=== PATIENT | male | born 1960 | race Caucasian/White ===

== ENCOUNTER 2016-10-23 03:11 | Emergency (ER) | payer BC ==
[2016-10-23] MEDS ORDERED: HYDROmorphone 1 MG/ML Syringe IVPUSH ONE ×3 (03:27→04:42)
[2016-10-23] MEDS ORDERED: Sodium Chloride 0.9% 1,000 ML IV ONE (03:27)
[2016-10-23] MEDS ORDERED: Ondansetron 4 MG/2 ML SDV IV ONE (03:27)
[2016-10-23] MEDS ORDERED: Iopamidol 612 MG/ML 100 ML Bottle IVPUSH ONE ×2 (03:29→03:30)
--- NOTE | 2016-10-23 03:34 | EDM.PDOC ---
ED HPI GI/ABDOMINAL - General Chief Complaint: Abdominal Pain Stated Complaint: SEVERE ABD PAIN Time Seen by Provider: 10/23/16 03:31 Source of Information: Reports: Patient, Family History Limitations: Reports: No limitations - History of Present Illness INITIAL COMMENTS - FREE TEXT/NARRATIVE: onset low abd' pain since 9pm, had same last year due to diverticulitis. had scope and no problem since then till tonight. no bloody stools. some nausea. denies ab'd surgery but had kidney removed in 2008 for cancer. no problem since. - Related Data Allergies/ADRs: Allergies Allergy/AdvReac Type Severity Reaction Status Date / Time No Known Allergies Allergy Verified 10/23/16 03:15 Home Meds: Home Meds traMADol HCl [Tramadol HCl] 50 mg PO BID PRN 02/28/16 [History] Moxifloxacin HCl 400 mg PO DAILY #10 tablet 03/03/16 [Rx] Past Medical History HEENT History: Reports: None Cardiovascular History: Reports: None Respiratory History: Reports: None Gastrointestinal History: Reports: Other (see below) Other Gastrointestinal History: diverticulitis Genitourinary History: Reports: Other (see below) Other Genitourinary History: kidney cancer 2008 Musculoskeletal History: Reports: Arthritis Other Musculoskeletal History: arthritis right hand Neurological History: Reports: None Psychiatric History: Reports: None Endocrine/Metabolic History: Reports: None Hematologic History: Reports: None Immunologic History: Reports: None Oncologic (Cancer) History: Reports: Renal Dermatologic History: Reports: None - Infectious Disease History Infectious Disease History: Reports: Chicken pox - Past Surgical History Head Surgeries/Procedures: Reports: None GI Surgical History: Reports: None Male Surgical History: Reports: Nephrectomy Social & Family History - Family History Family Medical History: Noncontributory - Tobacco Use Smoking Status *Q: Never Smoker - Caffeine Use Caffeine Use: Reports: None - Alcohol Use Days Per Week of Alcohol Use: 3 Number of Drinks Per Day: 3 Total Drinks Per Week: 9 - Recreational Drug Use Recreational Drug Use: No - Living Situation & Occupation Living situation: Reports: , with family Occupation: employed ([employer]) ED ROS GENERAL - Review of Systems Review Of Systems: ROS reveals no pertinent complaints other than HPI. ED EXAM, GI/ABD - Physical Exam Exam: See Below Exam Limited By: No limitations General Appearance: alert, WD/WN, mild distress, other (pain) Ears: hearing grossly normal Throat/Mouth: Normal voice, No airway compromise Head: atraumatic Neck: non-tender, full range of motion Respiratory/Chest: no respiratory distress Cardiovascular: regular rate, rhythm GI/Abdominal: tenderness, guarding. No: rebound, rigidity Neurological: alert, oriented, normal cognition, normal gait, no motor/sensory deficits Psychiatric: tearful Skin Exam: Warm, Dry Lymphatic: no adenopathy Course - Vital Signs Last Recorded V/S: Last Vital Signs Temp 36.0 C 10/23/16 03:21 Pulse 82 10/23/16 04:11 Resp 18 10/23/16 04:11 BP 132/79 10/23/16 04:11 Pulse Ox 92 L 10/23/16 04:11 - Orders/Labs/Meds Labs: Laboratory Tests 10/23/16 10/23/16 Range/Units 03:19 03:19 WBC 11.9 H (5.0-10.0) 10^3/uL RBC 4.79 (4.6-6.2) 10^6/uL Hgb 14.8 (14.0-18.0) g/dL Hct 44.8 (40.0-54.0) % MCV 93.5 (80-100) fL MCH 30.9 (27.0-34.0) pg MCHC 33.0 (33.0-35.0) g/dL Plt Count 188 (150-450) 10^3/uL Neut % (Auto) 81.2 H (42.2-75.2) % Lymph % (Auto) 10.4 L (20.5-50.1) % [place] % (Auto) 6.6 (2-8) % Eos % (Auto) 1.5 (1.0-3.0) % Baso % (Auto) 0.3 (0.0-1.0) % Sodium 137 (135-145) mmol/L Potassium 4.5 (3.6-5.0) mmol/L Chloride 105 (101-111) mmol/L Carbon Dioxide 23.0 (21.0-31.0) mmol/L Anion Gap 13.5 BUN 21 H (7-18) mg/dL Creatinine 1.1 (0.6-1.3) mg/dL Est Cr Clr Drug Dosing 84.26 mL/min Estimated GFR (MDRD) > 60 BUN/Creatinine Ratio 19.09 Glucose 138 H (74-105) mg/dL Calcium 9.3 (8.4-10.2) mg/dl Total Bilirubin 0.8 (0.2-1.0) mg/dL AST 28 (10-42) IU/L ALT 25 (10-60) IU/L Alkaline Phosphatase 64 (42-121) IU/L Total Protein 7.6 (6.7-8.2) g/dl Albumin 4.3 (3.2-5.5) g/dl Globulin 3.3 Albumin/Globulin Ratio 1.30 Amylase 45 (28-100) U/L Lipase 38 (22-51) U/L Meds: Medications Discontinued Medications Generic Name Dose Route Start Last Admin Trade Name Freq PRN Reason Stop Dose Admin Hydromorphone HCl 1 mg 10/23/16 03:27 10/23/16 03:33 Dilaudid IVPUSH 10/23/16 03:28 1 mg ONETIME ONE Administration Hydromorphone HCl 1 mg 10/23/16 04:01 10/23/16 04:04 Dilaudid IVPUSH 10/23/16 04:02 1 mg ONETIME ONE Administration Hydromorphone HCl 1 mg 10/23/16 04:42 Dilaudid IVPUSH 10/23/16 04:43 ONETIME ONE Sodium Chloride 1,000 mls @ 999 mls/hr 10/23/16 03:27 10/23/16 03:33 Normal Saline IV 10/23/16 04:27 999 mls/hr .BOLUS ONE Administration Iopamidol 25 ml 10/23/16 03:29 Isovue-300 (61%) IVPUSH 10/23/16 03:30 ONETIME ONE Iopamidol 100 ml 10/23/16 03:30 Isovue-300 (61%) IVPUSH 10/23/16 03:31 ONETIME ONE Iopamidol 75 ml 10/23/16 03:39 10/23/16 04:03 Isovue-300 (61%) IVPUSH 10/23/16 03:40 75 ml ONETIME ONE Administration Iopamidol 50 ml 10/23/16 03:40 10/23/16 04:03 Isovue-300 (61%) IVPUSH 10/23/16 03:41 50 ml ONETIME ONE Administration Ondansetron HCl 4 mg 10/23/16 03:27 10/23/16 03:33 Zofran IV 10/23/16 03:28 4 mg ONETIME ONE Administration - Re-Assessments/Exams Free Text/Narrative Re-Assessment/Exam: 10/23/16 04:43 results discussed with Pt & spouse who felt it's better at home since he can sleep better. last admit Pt got Tx with ABX & MS which they can take at home since labs are reasonable and there's no perforation. Departure - Departure Time of Disposition: 04:50 Disposition: Home, Self-Care 01 Condition: good Clinical Impression: Diverticulitis large intestine w/o perforation or abscess w/o bleeding Instructions: Abdominal Pain, Adult, [id number] Forms: ED Department Discharge Additional Instructions: 1) return if there is any change or concern 2) avoid solid foods next 48 hoiurs rx given: moxifloxacin 400mg daily x 10 morphine 15mg q 4-6 hr prn x 12
[2016-10-23] MEDS ORDERED: Iopamidol 612 MG/ML 75 ML Bottle IVPUSH ONE (03:39)
[2016-10-23] MEDS ORDERED: Iopamidol 612 MG/ML 50 ML SDV IVPUSH ONE (03:40)
[2016-10-23 03:47] LABS: CHLORIDE,CL 105 mmol/L (101-111); SODIUM,NA 137 mmol/L (135-145)
[2016-10-23 04:11] VITALS: BP 132/79
== END 2016-10-23 04:59 | disposition home or self-care (01) ==
LOC: DL.ED 03:11
DX: K57.32 Diverticulitis of large intestine without perforation or abscess without bleeding (principal); M19.90 Unspecified osteoarthritis, unspecified site
CPT/HCPCS: 36415; 74177; 80053; 82150; 83690; 85025; 96361; 96374; 96375; 96376; 99284; J1170; J2405; J7030; Q9967

== ENCOUNTER 2017-01-06 05:46 | Day surgery (SDC) | payer BC ==
[2017-01-06] MEDS ORDERED: Sodium Chloride 0.9% 10 ML Syringe FLUSH PRN (06:00)
[2017-01-06] MEDS ORDERED: Dextrose 5%-0.45% NaCl 1,000 ML IV SCH (06:00)
[2017-01-06] MEDS ORDERED: fentaNYL 100 MCG/2 ML SDV ONE (06:14)
[2017-01-06] MEDS ORDERED: Midazolam 1 MG/ML 2 ML SDV ONE (06:18)
[2017-01-06] MEDS ORDERED: fentaNYL 100 MCG/2 ML SDV IV ONE ×4 (07:03→07:13)
[2017-01-06] MEDS ORDERED: Midazolam 1 MG/ML 2 ML SDV IV ONE ×7 (07:04→07:28)
--- NOTE | 2017-01-06 09:17 | OR ---
DATE: 01/06/2017 PROCEDURE: Total colonoscopy, NBI, and cold snare polypectomy. INSTRUMENT USED: CF-H180AL Olympus video colonoscope. PREMEDICATIONS: Fentanyl 150 mcg intravenous, Versed 5 mg intravenous. Nasal O2 cannula. The procedure was done under pulse oximetry, BP recording, and orthotist/prosthetist. INDICATION: The patient with positive family history of colon cancer and recurrent left-sided lower abdominal pain, treated as subacute colonic diverticulitis. Colonoscopic examination is done for detection of any polypoid lesions and removal, endoscopic hemostasis therapy if needed. DESCRIPTION OF PROCEDURE: Initial rectal exam was unremarkable. Rigid anoscopy was normal. The colonoscope was passed with ease. Numerous scattered diverticula were noted in the left colon along with some prominent erythematous folds around one of the diverticula. The colon was found to be a bit tortuous and redundant. The scope was passed up to the ileocecal area, photographs were taken of the cecum identified by prominent double-bulged ileocecal folds. No bleeding was noted from any of the visualized areas at the commencement of the examination. No stricture. No vascular ectasia. No large isolated ulcerations seen. No evidence of diffuse inflammatory bowel disease in the form of friability, contact bleeding, or ulcerations. In the proximal ascending colon, less than 1 cm sized benign-appearing polyp was noted, NBI views were obtained, photographs were taken, cold snare polypectomy was done, the tissue was retrieved and sent for histopathology. Probing the proximal sides of folds and flexures, using adequate distention and clearing up the stool material, withdrawal of the scope was made. Cecum to rectum time over 6 minutes. No bleeding was noted from any of the visualized areas at the completion of examination. IMPRESSION: 1. Diverticulosis. 2. Proximal ascending colon polyp. The patient tolerated the procedure well. [facility] /[id number]
[2017-01-06 10:25] VITALS: BP 95/76
== END 2017-01-06 09:49 | disposition home or self-care (01) ==
LOC: DL.ENDO 05:46
PROVIDERS: ATTEND Internal Medicine Gastroenterology
DX: D12.2 Benign neoplasm of ascending colon (principal); K57.30 Diverticulosis of large intestine without perforation or abscess without bleeding; E66.9 Obesity, unspecified; Z90.5 Acquired absence of kidney
CPT/HCPCS: 45385; J7042; J2250; J3010

== ENCOUNTER 2019-12-10 21:24 | Emergency (ER) | payer BC ==
--- NOTE | 2019-12-10 21:53 | EDM.PDOC ---
ED HPI GENERAL MEDICAL PROBLEM - General Chief Complaint: Back Pain or Injury Stated Complaint: BACK PAIN Time Seen by Provider: 12/10/19 21:53 Source of Information: Reports: Patient, RN, RN Notes Reviewed History Limitations: Reports: No Limitations - History of Present Illness INITIAL COMMENTS - FREE TEXT/NARRATIVE: Patient presents to ER with complaint of mid to low back pain and muscle spasms. Patient states he has had back pain and problems in the past, has had an MRI many years ago. Patient states he has been in the tractor recently and bouncing up and down, aggravating the pain. Patient states pain started 4 to 5 days ago, improves at times, and then gets worse at times. Patient states he has been using Tylenol and ibuprofen and heat to the area without help. Patient denies any numbness or tingling down the lower extremities, no saddle anesthesia, and no incontinence of bowel or bladder. States no new injury, falls, heavy lifting. Rates pain 5/10. Onset: Gradual Duration: Intermittent Location: Reports: Back Quality: Reports: Sharp Severity: Moderate Improves with: Reports: None Worsens with: Reports: Movement Associated Symptoms: Reports: No Other Symptoms Treatments INTAKE MANAGER: Reports: Acetaminophen, Heat Therapy Right Middle Back Pain Score (Numeric/FACES): 5 - Related Data Allergies Allergy/AdvReac Type Severity Reaction Status Date / Time No Known Allergies Allergy Verified 12/10/19 21:36 Home Meds: Home Meds . [No Known Home Meds] 01/05/17 [History] Past Medical History HEENT History: Reports: None Cardiovascular History: Reports: None Respiratory History: Reports: None Gastrointestinal History: Reports: Diverticulosis, Other (See Below) Other Gastrointestinal History: HX OF RECURRENT diverticulitis Genitourinary History: Reports: Other (See Below) Other Genitourinary History: kidney cancer 2009 Musculoskeletal History: Reports: Arthritis Other Musculoskeletal History: arthritis right hand Neurological History: Reports: None Psychiatric History: Reports: None Endocrine/Metabolic History: Reports: Obesity/BMI 30+ Hematologic History: Reports: None Immunologic History: Reports: None Oncologic (Cancer) History: Reports: Renal Dermatologic History: Reports: None - Infectious Disease History Infectious Disease History: Reports: Chicken Pox - Past Surgical History Head Surgeries/Procedures: Reports: None HEENT Surgical History: Reports: None Cardiovascular Surgical History: Reports: None GI Surgical History: Reports: Colonoscopy Male Surgical History: Reports: Nephrectomy Other Male Surgeries/Procedures: R NEPHRECTOMY D/T CA Social & Family History - Family History Family Medical History: Noncontributory - Caffeine Use Caffeine Use: Reports: Soda - Living Situation & Occupation Living situation: Reports: , with Family Occupation: Employed ED ROS GENERAL - Review of Systems Review Of Systems: Comprehensive ROS is negative, except as noted in HPI. ED EXAM,LOWER BACK PAIN/INJURY - Physical Exam Exam: See Below Exam Limited By: No Limitations General Appearance: Alert, WD/WN, Moderate Distress Eye Exam: Bilateral Eye: EOMI, Normal Inspection Ears: Normal External Exam, Hearing Grossly Normal Nose: Normal Inspection Throat/Mouth: Normal Inspection, Normal Voice, No Airway Compromise Head: Atraumatic, Normocephalic Neck: Normal Inspection, Supple, Non-Tender, Full Range of Motion Respiratory/Chest: No Respiratory Distress, Lungs Clear, Normal Breath Sounds, No Accessory Muscle Use, Chest Non-Tender Cardiovascular: Normal Peripheral Pulses, Regular Rate, Rhythm, No Edema, No Gallop, No JVD, No Murmur, No Rub GI/Abdominal: Normal Bowel Sounds, Soft, Non-Tender, No Organomegaly, No Distention, No Abnormal Bruit, No Mass (Male) Exam: Deferred Rectal (Males) Exam: Deferred Back Exam: Normal Inspection, Decreased Range of Motion, Muscle Spasm, Paraspinal Tenderness (Approximately L1-L2), Vertebral Tenderness Extremities: Normal Inspection, Normal Range of Motion, Non-Tender, No Pedal Edema, Normal Capillary Refill Neurological: Alert, Normal Mood/Affect, Normal Dorsiflexion, CN II-XII Intact, Normal Plantar Flexion, Normal Gait, Normal Reflexes, No Motor/Sensory Deficits , Oriented x 3 Psychiatric: Normal Affect, Normal Mood Skin Exam: Warm, Dry, Intact, Normal Color, No Rash Lymphatic: No Adenopathy Course - Vital Signs Last Recorded V/S: Last Vital Signs Temp 99.0 F 12/10/19 22:00 Pulse 84 12/10/19 22:00 Resp 16 12/10/19 22:00 BP 129/81 12/10/19 22:00 Pulse Ox 98 12/10/19 22:00 - Orders/Labs/Meds Meds: Medications Discontinued Medications Generic Name Dose Route Start Last Admin Trade Name Freq PRN Reason Stop Dose Admin Dexamethasone 12 mg 12/10/19 21:57 12/10/19 22:12 Dexamethasone IM 12/10/19 21:58 12 mg ONETIME ONE Administration Ketorolac Tromethamine 30 mg 12/10/19 21:57 12/10/19 22:13 Toradol IM 12/10/19 21:58 30 mg ONETIME ONE Administration Orphenadrine Citrate 60 mg 12/10/19 21:57 12/10/19 22:14 Norflex IM 12/10/19 21:58 60 mg ONETIME ONE Administration Departure - Departure Time of Disposition: 22:31 Disposition: Home, Self-Care 01 Condition: Fair Clinical Impression: Low back pain Qualifiers: Chronicity: acute Back pain laterality: midline Sciatica presence: without sciatica Qualified Code(s): M54.5 - Low back pain - Discharge Information *PRESCRIPTION DRUG MONITORING PROGRAM REVIEWED*: No *COPY OF PRESCRIPTION DRUG MONITORING REPORT IN PATIENT HUBER: No Instructions: Back Injury Prevention, [id number], Muscle Strain, [id number] , Back Exercises, [id number] Forms: ED Department Discharge Additional Instructions: May alternate heat and ice to the area as tolerated I suggest a TENS unit as directed May use Tylenol and/or Ibuprofen as directed for pain RX: Norflex, Dexamethasone Follow up with your primary care provider for further management and MRI Sepsis Event Note - Focused Exam Vital Signs: Vital Signs Temp Pulse Resp BP Pulse Ox 12/10/19 22:00 99.0 F 84 16 129/81 98 Date Exam was Performed: 12/10/19 Time Exam was Performed: 23:13
[2019-12-10] MEDS ORDERED: Ketorolac 30 MG/ML SDV IM ONE (21:57)
[2019-12-10] MEDS ORDERED: Dexamethasone 4 MG/ML SDV IM ONE (21:57)
[2019-12-10 22:05] VITALS: BP 129/81; PULSE 84
== END 2019-12-10 22:25 | disposition home or self-care (01) ==
LOC: DL.ED 21:24
DX: M54.5 Low back pain (principal); E66.9 Obesity, unspecified; Z68.37 Body mass index [BMI] 37.0-37.9, adult
CPT/HCPCS: 96372; 99283; J1100; J1885; J2360

== ENCOUNTER 2020-05-10 15:35 | Emergency (ER) | payer BC ==
--- NOTE | 2020-05-10 15:57 | EDM.PDOC ---
"ED HPI GENERAL MEDICAL PROBLEM - General Chief Complaint: General Stated Complaint: chest congestion fever headache body aches Time Seen by Provider: 05/10/20 15:57 Source of Information: Reports: Patient, Old Records, RN, RN Notes Reviewed History Limitations: Reports: No Limitations - History of Present Illness INITIAL COMMENTS - FREE TEXT/NARRATIVE: Pt presents to ER from home with c/o that he has been sick since with cough, fever, and congestion. He went to clinic on and tested negative for COVID by the state test. He was given given nasal spray and Jessica. He c/o having abdominal pain but states it is from coughing. He states he is coughing up dark green phlegm, and no x-ray was done at the clinic. Admits to running fever on and off, and mild shortness of breath. He has been taking Tylenol, but doesn't think it is helping. He states his daughter had COVID 10 days ago. Onset: Gradual Onset Date: 05/07/20 Duration: Constant Location: Reports: Chest, Generalized Severity: Moderate Improves with: Reports: None Worsens with: Reports: Breathing Associated Symptoms: Reports: No Other Symptoms Treatments HEAD CASHIER: Reports: Acetaminophen, Other Medication(s) Abdomen Pain Score (Numeric/FACES): 7 - Related Data Allergies Allergy/AdvReac Type Severity Reaction Status Date / Time No Known Allergies Allergy Verified 05/10/20 16:05 Home Meds: Home Meds . [No Known Home Meds] 01/05/17 [History] Past Medical History HEENT History: Reports: None Cardiovascular History: Reports: None Respiratory History: Reports: None Gastrointestinal History: Reports: Diverticulosis, Other (See Below) Other Gastrointestinal History: HX OF RECURRENT diverticulitis Genitourinary History: Reports: Other (See Below) Other Genitourinary History: kidney cancer 2008 Musculoskeletal History: Reports: Arthritis Other Musculoskeletal History: arthritis right hand Neurological History: Reports: None Psychiatric History: Reports: None Endocrine/Metabolic History: Reports: Obesity/BMI 30+ Hematologic History: Reports: None Immunologic History: Reports: None Oncologic (Cancer) History: Reports: Renal Dermatologic History: Reports: None - Infectious Disease History Infectious Disease History: Reports: Chicken Pox - Past Surgical History Head Surgeries/Procedures: Reports: None HEENT Surgical History: Reports: None Cardiovascular Surgical History: Reports: None GI Surgical History: Reports: Colonoscopy Male Surgical History: Reports: Nephrectomy Other Male Surgeries/Procedures: R NEPHRECTOMY D/T CA Social & Family History - Family History Family Medical History: Noncontributory - Caffeine Use Caffeine Use: Reports: Soda - Living Situation & Occupation Living situation: Reports: , with Family Occupation: Employed ED ROS GENERAL - Review of Systems Review Of Systems: Comprehensive ROS is negative, except as noted in HPI. ED EXAM, GENERAL - Physical Exam Exam: See Below Exam Limited By: No Limitations General Appearance: Alert, No Apparent Distress, Anxious, Obese, Other (Acutely ill but non-toxic appearing.) Eye Exam: Bilateral Eye: Normal Inspection Ears: Normal External Exam, Normal Canal, Hearing Grossly Normal, Normal TMs Nose: No Blood, Nasal Drainage, Other (Moderate congestion) Throat/Mouth: Normal Lips, Normal Teeth, Normal Gums, Normal Oropharynx, Normal Voice, No Airway Compromise, Other (Dry oral mucosa) Head: Atraumatic, Normocephalic Neck: Normal Inspection, Supple, Non-Tender, Full Range of Motion. No: Lymphadenopathy (L), Lymphadenopathy (R) Respiratory/Chest: No Respiratory Distress, No Accessory Muscle Use, Decreased Breath Sounds, Crackles (with coarse breath sounds throughout), Other (Cough with occ. green sputum production). No: Rales, Rhonchi, Wheezing, Stridor Cardiovascular: Regular Rate, Rhythm, No Edema, Tachycardia GI/Abdominal: Normal Bowel Sounds, Soft, Non-Tender, No Organomegaly, No Distention, No Abnormal Bruit, No Mass Back Exam: Normal Inspection Extremities: Normal Inspection, Normal Range of Motion, Non-Tender, Normal Capillary Refill, No Pedal Edema Neurological: Alert, Oriented, CN II-XII Intact, Normal Cognition, Normal Gait, No Motor/Sensory Deficits Skin Exam: Warm, Dry, Intact, Normal Color, No Rash #1 Interpretation EKG Date: 05/10/20 Time: 17:12 Rhythm: Other (SR) Rate (Beats/Min): 99 Harrington: LAD-Left Harrington Deviation P-Wave: Present QRS: Normal ST-T: Other (borderline T abnls. in lateral leads without acute ischemic changes.) QT: Normal Comparison: NA - No Prior EKG Course - Vital Signs Last Recorded V/S: Last Vital Signs Temp 98.6 F 05/10/20 15:55 Pulse 122 H 05/10/20 15:55 Resp 18 05/10/20 15:55 BP 132/93 H 05/10/20 15:55 Pulse Ox 94 L 05/10/20 15:55 - Orders/Labs/Meds Orders: Active Orders 24 hr Category Date Time Status EKG 12 Lead [EKG Documentation Completion] [RC] STAT Care 05/10/20 17:06 Active Peripheral IV Care [RC] . DIRECTED Care 05/10/20 17:07 Active RT Aerosol Therapy [RC] ASDIRECTED Care 05/10/20 17:53 Active RT Post Treatment Assessment [RC] Click to Edit Care 05/10/20 18:48 Ordered RT Pre-Treatment Assessment [RC] Click to Edit Care 05/10/20 18:48 Ordered CULTURE BLOOD [BC] Stat Lab 05/10/20 17:12 Received CULTURE BLOOD [BC] Stat Lab 05/10/20 17:17 Received CULTURE STREP A CONFIRMATION [RM] Stat Lab 05/10/20 15:55 Results FERRITIN [CHEM] Stat Lab 05/10/20 17:12 Received STREP SCRN A RAPID W CULT CONF [RM] Stat Lab 05/10/20 15:55 Results Albuterol [Proventil HFA] Med 05/10/20 18:47 Once 6.7 gm INH ONETIME ONE Sodium Chloride 0.9% [Saline Flush] Med 05/10/20 17:06 Active 10 ml FLUSH ASDIRECTED PRN Blood Culture x2 Reflex Set [OM.PC] Stat Oth 05/10/20 17:06 Ordered Isolation [COMM] Routine Oth 05/10/20 15:58 Active Peripheral IV Insertion Adult [OM.PC] Stat Oth 05/10/20 17:07 Ordered Medication Orders Sodium Chloride (Saline Flush) 10 ml FLUSH ASDIRECTED PRN PRN Reason: Keep Vein Open Labs: Laboratory Tests 05/10/20 05/10/20 05/10/20 Range/Units 16:00 17:12 17:12 WBC 5.7 (5.0-10.0) 10^3/uL RBC 5.22 (4.6-6.2) 10^6/uL Hgb 16.0 (14.0-18.0) g/dL Hct 48.7 (40.0-54.0) % MCV 93.3 (80-100) fL MCH 30.7 (27.0-34.0) pg MCHC 32.9 L (33.0-35.0) g/dL Plt Count 139 L (150-450) 10^3/uL Neut % (Auto) 71.5 (42.2-75.2) % Lymph % (Auto) 6.7 L (20.5-50.1) % Wallace % (Auto) 20.5 H (2-8) % Eos % (Auto) 0.9 L (1.0-3.0) % Baso % (Auto) 0.4 (0.0-1.0) % Add Manual Diff Yes Neutrophils % (Manual) 62 (42-75) % Band Neutrophils % 9 % Lymphocytes % (Manual) 10 L (20-50) % Monocytes % (Manual) 18 H (2-8) % Eosinophils % (Manual) 1 (1-3) % Vacuolated Monocytes 1+ slight Platelet Estimate Decreased D-Dimer, Quantitative 1200 H (0-400) ng/mL Sodium (136-145) mmol/L Potassium (3.5-5.1) mmol/L Chloride (98-107) mmol/L Carbon Dioxide (21-32) mmol/L Anion Gap (7-13) mEq/L BUN (7-18) mg/dL Creatinine (0.70-1.30) mg/dL Est Cr Clr Drug Dosing Estimated GFR (MDRD) BUN/Creatinine Ratio (No establ ref range) Glucose (74-99) mg/dL Lactic Acid (0.4-2.0) mmol/L Calcium (8.5-10.1) mg/dL Total Bilirubin (0.2-1.0) mg/dL AST (15-37) U/L ALT (16-63) U/L Alkaline Phosphatase (46-116) U/L Troponin I (0.000-0.056) ng/mL C-Reactive Protein (0.0-0.9) mg/dL B-Natriuretic Peptide (0-100) pg/ml Total Protein (6.4-8.2) g/dL Albumin (3.4-5.0) g/dL Globulin Albumin/Globulin Ratio SARS CoV-2 RNA Rapid NATI Negative (NEGATIVE) 05/10/20 05/10/2020 Range/Units 17:12 17:12 17:12 WBC (5.0-10.0) 10^3/uL RBC (4.6-6.2) 10^6/uL Hgb (14.0-18.0) g/dL Hct (40.0-54.0) % MCV (80-100) fL MCH (27.0-34.0) pg MCHC (33.0-35.0) g/dL Plt Count (150-450) 10^3/uL Neut % (Auto) (42.2-75.2) % Lymph % (Auto) (20.5-50.1) % Wallace % (Auto) (2-8) % Eos % (Auto) (1.0-3.0) % Baso % (Auto) (0.0-1.0) % Add Manual Diff Neutrophils % (Manual) (42-75) % Band Neutrophils % % Lymphocytes % (Manual) (20-50) % Monocytes % (Manual) (2-8) % Eosinophils % (Manual) (1-3) % Vacuolated Monocytes Platelet Estimate D-Dimer, Quantitative (0-400) ng/mL Sodium 136 (136-145) mmol/L Potassium 3.7 (3.5-5.1) mmol/L Chloride 97 L (98-107) mmol/L Carbon Dioxide 26 (21-32) mmol/L Anion Gap 16.7 H (7-13) mEq/L BUN 20 H (7-18) mg/dL Creatinine 1.54 H (0.70-1.30) mg/dL Est Cr Clr Drug Dosing TNP Estimated GFR (MDRD) 47 BUN/Creatinine Ratio 13.0 (No establ ref range) Glucose 97 (74-99) mg/dL Lactic Acid 1.2 (0.4-2.0) mmol/L Calcium 9.3 (8.5-10.1) mg/dL Total Bilirubin 1.4 H (0.2-1.0) mg/dL AST 46 H (15-37) U/L ALT 59 (16-63) U/L Alkaline Phosphatase 74 (46-116) U/L Troponin I < 0.017 (0.000-0.056) ng/mL C-Reactive Protein 10.5 H (0.0-0.9) mg/dL B-Natriuretic Peptide 11 (0-100) pg/ml Total Protein 8.0 (6.4-8.2) g/dL Albumin 3.7 (3.4-5.0) g/dL Globulin 4.3 Albumin/Globulin Ratio 0.9 SARS CoV-2 RNA Rapid NATI (NEGATIVE) Negative Influenza A/B Negative Rapid Strep Meds: Medications Generic Name Dose Route Start Last Admin Trade Name Freq PRN Reason Stop Dose Admin Sodium Chloride 10 ml 05/10/20 17:06 Saline Flush FLUSH ASDIRECTED PRN Keep Vein Open Discontinued Medications Generic Name Dose Route Start Last Admin Trade Name Freq PRN Reason Stop Dose Admin Albuterol/Ipratropium 3 ml 05/10/20 17:53 05/10/20 18:32 Duoneb 3.0-0.5 Mg/3 Ml NEB 05/10/20 17:54 3 ml ONETIME ONE Administration Dexamethasone 8 mg 05/10/20 17:47 05/10/20 18:02 Dexamethasone IVPUSH 05/10/20 17:48 8 mg ONETIME ONE Administration Sodium Chloride 1,000 mls @ 999 mls/hr 05/10/20 17:06 05/10/20 17:18 Normal Saline IV 05/10/20 18:06 999 mls/hr .BOLUS ONE Administration Ceftriaxone Sodium 2 gm/ 100 mls @ 200 mls/hr 05/10/20 17:46 Sodium Chloride IV 05/10/20 18:15 ONETIME ONE Azithromycin 500 mg/ Sodium 250 mls @ 250 mls/hr 05/10/20 17:47 Chloride IV 05/10/20 18:46 ONETIME ONE Iopamidol 100 ml 05/10/20 17:56 05/10/20 18:02 Isovue-370 (76%) IVPUSH 05/10/20 17:57 100 ml ONETIME ONE Administration Ondansetron HCl 4 mg 05/10/20 17:05 05/10/20 17:17 Zofran IV 05/10/20 17:06 4 mg ONETIME ONE Administration Promethazine HCl/Codeine 10 ml 05/10/20 17:05 05/10/20 17:18 Phenergan With Codeine PO 05/10/20 17:06 10 ml ONETIME ONE Administration - Radiology Interpretation Free Text/Narrative:: [facility] Final Radiology Report Call: [phone] assistance Online chat: [email or web address] Name: ALENA SHARIF Age: 60Years M Date: 05/10/2020 SSN: -- : 1960 Study: CR CHEST 2V Requesting Physician: RADHA GUZMAN Images: 2 Addl Studies: Provided Clinical History: productive cough, fever Contrast: Contrast Medium: Contrast Amount: Contrast Method: CONFIDENTIALITY STATEMENT This report is intended only for use by the referring physician, and only in accordance with law. If you received this in error, call [phone]. Page 1 of 1 PROCEDURE INFORMATION: Exam: XR Chest, 2 Views Exam date and time: 05/10/2020 5:28 PM Age: 60 years old Clinical indication: Other: Covid negative; Additional info: Productive cough, fever TECHNIQUE: Imaging protocol: XR of the chest Views: 2 views. COMPARISON: No relevant prior studies available. FINDINGS: Lungs: Unremarkable. No consolidation. Pleural space: Unremarkable. No pleural effusion. No pneumothorax. Heart/Mediastinum: Unremarkable. No cardiomegaly. Bones/joints: Unremarkable. IMPRESSION: No acute findings. Thank you for allowing us to participate in the care of your patient. Dictated and Authenticated by: Franck Pablo MD 05/10/2020 5:33 PM Central Time ([place] & [place]) [facility] Final Radiology Report Call: [phone] assistance Online chat: [email or web address] Name: ALENA SHARIF Age: 60Years M Date: 05/10/2020 SSN: -- : 1960 Study: CT CHEST W CONT Requesting Physician: RADHA GUZMAN Images: [id number] Addl Studies: Provided Clinical History: cough, fever, short of breath, tachy, D-dimer 1200 Contrast: With Contrast Medium: [id number] Contrast Amount: 83 mL Contrast Method: Intravenous (IV) Page 1 of 2 PROCEDURE INFORMATION: Exam: CT Chest With Contrast Exam date and time: 05/10/2020 6:23 PM Age: 60 years old Clinical indication: Other: Pe vs false positive covid; Additional info: Cough, fever, short of breath, tachy, d-dimer 1200 TECHNIQUE: Imaging protocol: Computed tomography of the chest with intravenous contrast. Radiation optimization: All CT scans at this facility use at least one of these dose optimization techniques: automated exposure control; mA and/or kV adjustment per patient size (includes targeted exams where dose is matched to clinical indication); or iterative reconstruction. Contrast material: [id number]; Contrast volume: 83 ml; Contrast route: INTRAVENOUS (IV); COMPARISON: CR Chest 2V 05/10/2020 5:28 PM FINDINGS: Lungs: Unremarkable. No consolidation. No masses. Pleural space: Unremarkable. No pneumothorax. No pleural effusion. Heart: Unremarkable. No cardiomegaly. No pericardial effusion. Aorta: Unremarkable. No aortic aneurysm. Lymph nodes: Unremarkable. No enlarged lymph nodes. Bones/joints: Unremarkable. No acute fracture. Soft tissues: Unremarkable. IMPRESSION: Normal CT angiogram of the chest. No evidence for pulmonary embolism or acute cardiopulmonary disease. ALENA SHARIF | Final Radiology Report CONFIDENTIALITY STATEMENT This report is intended only for use by the referring physician, and only in accordance with law. If you received this in error, call [phone]. Page 2 of 2 Thank you for allowing us to participate in the care of your patient. Dictated and Authenticated by: Franck Pablo MD 05/10/2020 6:38 PM Central Time ([place] & [place]) - Re-Assessments/Exams Free Text/Narrative Re-Assessment/Exam: 05/10/20 18:43 Pt has symptoms consistent with COVID but had a negative COVID state test a few days ago, and negative rapid test in ER today. Lab results do have some features of COVID with normal WBC, low lymphocytes, elev. CRP and D-dimer, and pt was COVID exposed by his daughter. He will be treated symptomatically with Abx, albuterol inhaler, and Decadron with instructions to return to ER or call 911 if worse at any time and to arrange close clinic f/u for himself early next week. Departure - Departure Time of Disposition: 20:00 Disposition: Home, Self-Care 01 Condition: Fair Clinical Impression: Viral upper respiratory tract infection with cough - Discharge Information *PRESCRIPTION DRUG MONITORING PROGRAM REVIEWED*: Not Applicable *COPY OF PRESCRIPTION DRUG MONITORING REPORT IN PATIENT HUBER: Not Applicable Instructions: Viral Respiratory Infection Forms: ED Department Discharge Additional Instructions: Rx: Zithromax 500mg Rx: Dexamethasone 4mg Rx: Promethazine Codeine Syrup Albuterol Inhaler: 2 puffs every four hours while awake until cough and shortness of breath resolve. Drink plenty of water. Follow up in clinic next week for recheck if not improving as expected. Return to ER or call 911 if you develop any difficulty breathing. Sepsis Event Note (ED) - Focused Exam Vital Signs: Vital Signs Temp Pulse Resp BP Pulse Ox 05/10/20 15:55 98.6 F 122 H 18 132/93 H 94 L - My Orders Last 24 Hours: My Active Orders 05/10/20 15:55 CULTURE STREP A CONFIRMATION [RM] Stat STREP SCRN A RAPID W CULT CONF [RM] Stat 05/10/20 15:58 Isolation [COMM] Routine 05/10/20 17:06 EKG 12 Lead [EKG Documentation Completion] [RC] STAT Sodium Chloride 0.9% [Saline Flush] 10 ml FLUSH ASDIRECTED PRN Blood Culture x2 Reflex Set [OM.PC] Stat 05/10/20 17:07 Peripheral IV Care [RC] . DIRECTED Peripheral IV Insertion Adult [OM.PC] Stat 05/10/20 17:12 CULTURE BLOOD [BC] Stat FERRITIN [CHEM] Stat 05/10/20 17:17 CULTURE BLOOD [BC] Stat 05/10/20 17:53 RT Aerosol Therapy [RC] ASDIRECTED 05/10/20 18:47 Albuterol [Proventil HFA] 6.7 gm INH ONETIME ONE 05/10/20 18:48 RT Post Treatment Assessment [RC] Click to Edit RT Pre-Treatment Assessment [RC] Click to Edit - Assessment/Plan Last 24 Hours: My Active Orders 05/10/20 15:55 CULTURE STREP A CONFIRMATION [RM] Stat STREP SCRN A RAPID W CULT CONF [RM] Stat 05/10/20 15:58 Isolation [COMM] Routine 05/10/20 17:06 EKG 12 Lead [EKG Documentation Completion] [RC] STAT Sodium Chloride 0.9% [Saline Flush] 10 ml FLUSH ASDIRECTED PRN Blood Culture x2 Reflex Set [OM.PC] Stat 05/10/20 17:07 Peripheral IV Care [RC] . DIRECTED Peripheral IV Insertion Adult [OM.PC] Stat 05/10/20 17:12 CULTURE BLOOD [BC] Stat FERRITIN [CHEM] Stat 05/10/20 17:17 CULTURE BLOOD [BC] Stat 05/10/20 17:53 RT Aerosol Therapy [RC] ASDIRECTED 05/10/20 18:47 Albuterol [Proventil HFA] 6.7 gm INH ONETIME ONE 05/10/20 18:48 RT Post Treatment Assessment [RC] Click to Edit RT Pre-Treatment Assessment [RC] Click to Edit"
[2020-05-10] MEDS ORDERED: Ondansetron 4 MG/2 ML SDV IV ONE (17:05)
[2020-05-10] MEDS ORDERED: Codeine/Promethazine 10-6.25 MG/5 ML Syrup 5 ML UD Cup PO ONE (17:05)
[2020-05-10] MEDS ORDERED: Sodium Chloride 0.9% 10 ML Syringe FLUSH PRN (17:06)
[2020-05-10] MEDS ORDERED: Sodium Chloride 0.9% 1,000 ML IV ONE (17:06)
--- NOTE | 2020-05-10 17:34 | CR ---
PROCEDURE INFORMATION: Exam: XR Chest, 2 Views Exam date and time: 05/10/2020 5:28 PM Age: 60 years old Clinical indication: Other: Covid negative; Additional info: Productive cough, fever TECHNIQUE: Imaging protocol: XR of the chest Views: 2 views. COMPARISON: No relevant prior studies available. FINDINGS: Lungs: Unremarkable. No consolidation. Pleural space: Unremarkable. No pleural effusion. No pneumothorax. Heart/Mediastinum: Unremarkable. No cardiomegaly. Bones/joints: Unremarkable. IMPRESSION: No acute findings.
[2020-05-10] MEDS ORDERED: cefTRIAXone 2 GM in Sodium Chloride 0.9% 100 ML IV ONE (17:46)
[2020-05-10] MEDS ORDERED: Dexamethasone 4 MG/ML SDV IVPUSH ONE (17:47)
[2020-05-10] MEDS ORDERED: Azithromycin 500 MG in Sodium Chloride 0.9% 250 ML IV ONE (17:47)
[2020-05-10 17:49] LABS: ANION GAP 16.7 mEq/L (7-13); CHLORIDE,CL 97 mmol/L (98-107); SODIUM,NA 136 mmol/L (136-145)
[2020-05-10] MEDS ORDERED: Albuterol/Ipratropium 3.0-0.5 MG/3 ML Neb Soln NEB ONE (17:53)
[2020-05-10] MEDS ORDERED: Iopamidol 755 Mg/ML 100 ML Bottle IVPUSH ONE (17:56)
--- NOTE | 2020-05-10 18:38 | CT ---
PROCEDURE INFORMATION: Exam: CT Chest With Contrast Exam date and time: 05/10/2020 6:23 PM Age: 60 years old Clinical indication: Other: Pe vs false positive covid; Additional info: Cough, fever, short of breath, tachy, d-dimer 1200 TECHNIQUE: Imaging protocol: Computed tomography of the chest with intravenous contrast. Radiation optimization: All CT scans at this facility use at least one of these dose optimization techniques: automated exposure control; mA and/or kV adjustment per patient size (includes targeted exams where dose is matched to clinical indication); or iterative reconstruction. Contrast material: [id number]; Contrast volume: 83 ml; Contrast route: INTRAVENOUS (IV); COMPARISON: CR Chest 2V 05/10/2020 5:28 PM FINDINGS: Lungs: Unremarkable. No consolidation. No masses. Pleural space: Unremarkable. No pneumothorax. No pleural effusion. Heart: Unremarkable. No cardiomegaly. No pericardial effusion. Aorta: Unremarkable. No aortic aneurysm. Lymph nodes: Unremarkable. No enlarged lymph nodes. Bones/joints: Unremarkable. No acute fracture. Soft tissues: Unremarkable. IMPRESSION: Normal CT angiogram of the chest. No evidence for pulmonary embolism or acute cardiopulmonary disease.
[2020-05-10] MEDS ORDERED: Albuterol 6.7 GM Inhaler INH ONE (18:47)
[2020-05-10 20:52] VITALS: BP 128/78; PULSE 89
== END 2020-05-10 21:02 | disposition home or self-care (01) ==
LOC: DL.ED 15:35
DX: J06.9 Acute upper respiratory infection, unspecified (principal); E66.9 Obesity, unspecified; Z68.37 Body mass index [BMI] 37.0-37.9, adult; Z20.828 Contact with and (suspected) exposure to other viral communicable diseases
CPT/HCPCS: 36415; 71046; 71260; 80053; 82728; 83605; 83880; 84484; 85025; 85379; 86140; 87040; 87081; 87430; 87635; 87804; 93005; 94640; 96365; 96367; 96375; 99284; A9270; J0456; J0696; J1100; J2405; J7030; J7050; Q9967; J7620-GY; U0002

== ENCOUNTER 2020-05-17 07:40 | Inpatient (IN) | payer BC ==
--- NOTE | 2020-05-17 08:15 | EDM.PDOC ---
ED HPI GENERAL MEDICAL PROBLEM - General Chief Complaint: Respiratory Problem Stated Complaint: SHORTNESS OF BREATH PAST 12 DAYS, EXPOSED TO COVID Time Seen by Provider: 05/17/20 08:11 Source of Information: Reports: Patient, RN, RN Notes Reviewed History Limitations: Reports: No Limitations - History of Present Illness INITIAL COMMENTS - FREE TEXT/NARRATIVE: Pt presents to ER from home with c/o that he has been sick since with cough, fever, and congestion. He went to clinic on and tested negative for COVID by the state test. He was given given nasal spray and Jessica. He c/o having abdominal pain but states it is from coughing. He states he is coughing up dark green phlegm, and no x-ray was done at the clinic. Admits to running fever on and off, and worsening shortness of breath. He was seen here in ER on 05/10/20 and treated with Rocephin, DuoNeb, and discharged home on Zithromax, Decadron, and Phenergan w/Codeine. His shortness of breath is worse, but his body aches and other symptoms have improved. He states his daughter had COVID 10 days ago. On 05/10/20 he had a negative rapid COVID test. 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 [No Known Home Meds] 01/05/17 [History] Past Medical History HEENT History: Reports: None Cardiovascular History: Reports: None Respiratory History: Reports: None Gastrointestinal History: Reports: Diverticulosis, Other (See Below) Other Gastrointestinal History: HX OF RECURRENT diverticulitis Genitourinary History: Reports: Other (See Below) Other Genitourinary History: kidney cancer 2008 Musculoskeletal History: Reports: Arthritis Other Musculoskeletal History: arthritis right hand Neurological History: Reports: None Psychiatric History: Reports: None Endocrine/Metabolic History: Reports: Obesity/BMI 30+ Hematologic History: Reports: None Immunologic History: Reports: None Oncologic (Cancer) History: Reports: Renal Dermatologic History: Reports: None - Infectious Disease History Infectious Disease History: Reports: Chicken Pox - Past Surgical History Head Surgeries/Procedures: Reports: None HEENT Surgical History: Reports: None Cardiovascular Surgical History: Reports: None GI Surgical History: Reports: Colonoscopy Male Surgical History: Reports: Nephrectomy Other Male Surgeries/Procedures: R NEPHRECTOMY D/T CA Social & Family History - Family History Family Medical History: Noncontributory - Caffeine Use Caffeine Use: Reports: Soda - Living Situation & Occupation Living situation: Reports: , with Family Occupation: Employed ED ROS GENERAL - Review of Systems Review Of Systems: Comprehensive ROS is negative, except as noted in HPI. ED EXAM, GENERAL - Physical Exam Exam: See Below Exam Limited By: No Limitations General Appearance: Alert, No Apparent Distress, Obese, Other (Acutely ill but non-toxic appearing) Eye Exam: Bilateral Eye: Normal Inspection Nose: Normal Inspection, Normal Mucosa, No Blood Throat/Mouth: Normal Inspection, Normal Lips, Normal Teeth, Normal Gums, Normal Oropharynx, Normal Voice, No Airway Compromise Head: Atraumatic, Normocephalic Neck: Normal Inspection, Supple, Non-Tender, Full Range of Motion Respiratory/Chest: No Respiratory Distress, No Accessory Muscle Use, Chest Non- Tender, Decreased Breath Sounds, Crackles. No: Rales, Rhonchi, Wheezing, Stridor Cardiovascular: Regular Rate, Rhythm, No Edema, No Murmur, Tachycardia GI/Abdominal: Normal Bowel Sounds, Soft, Non-Tender, No Organomegaly, No Distention, No Abnormal Bruit, No Mass Back Exam: Normal Inspection Extremities: Normal Inspection, Normal Range of Motion, Non-Tender, Normal Capillary Refill, No Pedal Edema Neurological: Alert, Oriented, CN II-XII Intact, Normal Cognition, Normal Gait, No Motor/Sensory Deficits Psychiatric: Normal Affect, Normal Mood Skin Exam: Warm, Dry, Intact, Normal Color, No Rash #1 Interpretation EKG Date: 05/17/20 Time: 08:50 Rhythm: Other (SR) Rate (Beats/Min): 92 [place]: Normal P-Wave: Present QRS: Normal ST-T: Other (Borderline T wave abnl, flat in lat. leads.) QT: Normal Comparison: NA - No Prior EKG EKG Interpretation Comments: No acute ischemic changes. Course - Vital Signs Last Recorded V/S: Last Vital Signs Temp 99.9 F 05/17/20 07:57 Pulse 76 05/17/20 09:10 Resp 22 H 05/17/20 07:57 BP 115/84 05/17/20 07:57 Pulse Ox 97 05/17/20 07:57 - Orders/Labs/Meds Orders: Active Orders 24 hr Category Date Time Status EKG 12 Lead [EKG Documentation Completion] [RC] STAT Care 05/17/20 08:40 Active Peripheral IV Care [RC] . DIRECTED Care 05/17/20 08:40 Active RT Aerosol Therapy [RC] ASDIRECTED Care 05/17/20 09:04 Active C-REACTIVE PROTEIN [CHEM] Stat Lab 05/17/20 08:42 Received CPK [CREATINE KINASE,CK] [CHEM] Stat Lab 05/17/20 08:42 Received CULTURE BLOOD [BC] Stat Lab 05/17/20 08:42 Received CULTURE BLOOD [BC] Stat Lab 05/17/20 09:17 Received FERRITIN [CHEM] Stat Lab 05/17/20 08:42 Received INR,PT,PROTHROMBIN TIME [COAG] Stat Lab 05/17/20 08:42 Received LACTATE DEHYDROGENASE,LDH [CHEM] Stat Lab 05/17/20 08:42 Received PTT,PARTIAL THROMBOPLSTIN TIME [COAG] Stat Lab 05/17/20 08:42 Received Azithromycin [Zithromax] 500 mg Med 05/17/20 10:09 Active Sodium Chloride 0.9% [Normal Saline (AdvBag)] 250 ml IV ONETIME Sodium Chloride 0.9% [Saline Flush] Med 05/17/20 08:39 Active 10 ml FLUSH ASDIRECTED PRN Blood Culture x2 Reflex Set [OM.PC] Stat Oth 05/17/20 08:40 Ordered Peripheral IV Insertion Adult [OM.PC] Stat Oth 05/17/20 08:40 Ordered Medication Orders Azithromycin 500 mg/ Sodium (Chloride) 250 mls @ 250 mls/hr IV ONETIME ONE Stop: 05/17/20 11:08 Last Admin: 05/17/20 10:18 Dose: 250 mls/hr Documented by: [email or web address] Sodium Chloride (Saline Flush) 10 ml FLUSH ASDIRECTED PRN PRN Reason: Keep Vein Open Last Admin: 05/17/20 08:53 Dose: 10 ml Documented by: [id number] Labs: Laboratory Tests 05/17/20 05/17/20 05/17/20 Range/Units 07:52 08:42 08:42 WBC 5.2 (5.0-10.0) 10^3/uL RBC 5.33 (4.6-6.2) 10^6/uL Hgb 16.6 (14.0-18.0) g/dL Hct 48.6 (40.0-54.0) % MCV 91.2 (80-100) fL MCH 31.1 (27.0-34.0) pg MCHC 34.2 (33.0-35.0) g/dL Plt Count 185 (150-450) 10^3/uL Neut % (Auto) 69.8 (42.2-75.2) % Lymph % (Auto) 15.2 L (20.5-50.1) % [place] % (Auto) 14.6 H (2-8) % Eos % (Auto) 0.2 L (1.0-3.0) % Baso % (Auto) 0.2 (0.0-1.0) % D-Dimer, Quantitative (0-400) ng/mL Sodium 137 (136-145) mmol/L Potassium 3.5 (3.5-5.1) mmol/L Chloride 102 (98-107) mmol/L Carbon Dioxide 23 (21-32) mmol/L Anion Gap 15.5 H (7-13) mEq/L BUN 28 H (7-18) mg/dL Creatinine 1.35 H (0.70-1.30) mg/dL Est Cr Clr Drug Dosing 65.47 mL/min Estimated GFR (MDRD) 54 BUN/Creatinine Ratio 20.7 (No establ ref range) Glucose 93 (74-99) mg/dL Lactic Acid (0.4-2.0) mmol/L Calcium 8.7 (8.5-10.1) mg/dL Total Bilirubin 1.0 (0.2-1.0) mg/dL AST 44 H (15-37) U/L ALT 138 H (16-63) U/L Alkaline Phosphatase 74 (46-116) U/L Troponin I < 0.017 (0.000-0.056) ng/mL B-Natriuretic Peptide 43 (0-100) pg/ml Total Protein 7.2 (6.4-8.2) g/dL Albumin 3.2 L (3.4-5.0) g/dL Globulin 4.0 Albumin/Globulin Ratio 0.80 SARS CoV-2 RNA Rapid NATI Negative (NEGATIVE) 05/17/20 05/17/20 Range/Units 08:42 09:17 WBC (5.0-10.0) 10^3/uL RBC (4.6-6.2) 10^6/uL Hgb (14.0-18.0) g/dL Hct (40.0-54.0) % MCV (80-100) fL MCH (27.0-34.0) pg MCHC (33.0-35.0) g/dL Plt Count (150-450) 10^3/uL Neut % (Auto) (42.2-75.2) % Lymph % (Auto) (20.5-50.1) % [place] % (Auto) (2-8) % Eos % (Auto) (1.0-3.0) % Baso % (Auto) (0.0-1.0) % D-Dimer, Quantitative 497 H (0-400) ng/mL Sodium (136-145) mmol/L Potassium (3.5-5.1) mmol/L Chloride (98-107) mmol/L Carbon Dioxide (21-32) mmol/L Anion Gap (7-13) mEq/L BUN (7-18) mg/dL Creatinine (0.70-1.30) mg/dL Est Cr Clr Drug Dosing mL/min Estimated GFR (MDRD) BUN/Creatinine Ratio (No establ ref range) Glucose (74-99) mg/dL Lactic Acid 1.3 (0.4-2.0) mmol/L Calcium (8.5-10.1) mg/dL Total Bilirubin (0.2-1.0) mg/dL AST (15-37) U/L ALT (16-63) U/L Alkaline Phosphatase (46-116) U/L Troponin I (0.000-0.056) ng/mL B-Natriuretic Peptide (0-100) pg/ml Total Protein (6.4-8.2) g/dL Albumin (3.4-5.0) g/dL Globulin Albumin/Globulin Ratio SARS CoV-2 RNA Rapid NATI (NEGATIVE) Meds: Medications Generic Name Dose Route Start Last Admin Trade Name Fretarik PRN Reason Stop Dose Admin Azithromycin 500 mg/ Sodium 250 mls @ 250 mls/hr 05/17/20 10:09 05/17/20 10:18 Chloride IV 05/17/20 11:08 250 mls/hr ONETIME ONE Administration Sodium Chloride 10 ml 05/17/20 08:39 05/17/20 08:53 Saline Flush FLUSH 10 ml ASDIRECTED PRN Administration Keep Vein Open Discontinued Medications Generic Name Dose Route Start Last Admin Trade Name Freq PRN Reason Stop Dose Admin Albuterol/Ipratropium 3 ml 05/17/20 09:03 05/17/20 09:17 Duoneb 3.0-0.5 Mg/3 Ml NEB 05/17/20 09:04 3 ml ONETIME ONE Administration Dexamethasone 6 mg 05/17/20 10:08 05/17/20 10:15 Decadron IVPUSH 05/17/20 10:09 6 mg ONETIME ONE Administration Famotidine 20 mg 05/17/20 10:08 05/17/20 10:15 Pepcid IVPUSH 05/17/20 10:09 20 mg ONETIME ONE Administration Sodium Chloride 1,000 mls @ 999 mls/hr 05/17/20 09:33 05/17/20 10:15 Normal Saline IV 05/17/20 10:33 Not Given .BOLUS ONE Methylprednisolone Sodium Succinate 125 mg 05/17/20 09:33 05/17/20 10:15 Solu-Medrol IVPUSH 05/17/20 09:34 Not Given ONETIME ONE - Radiology Interpretation Free Text/Narrative:: CT Chest: findings of multilobar ground glass opacities consistent with COVID per Radiologist's phone report. Departure - Departure Time of Disposition: 10:48 (admitted to Dr. Rogers) Disposition: Admitted As Inpatient 68 Condition: Fair Clinical Impression: Hypoxia, Viral pneumonitis - Discharge Information *PRESCRIPTION DRUG MONITORING PROGRAM REVIEWED*: Not Applicable *COPY OF PRESCRIPTION DRUG MONITORING REPORT IN PATIENT HUBER: Not Applicable Forms: ED Department Discharge Sepsis Event Note (ED) - Evaluation Sepsis Screening Result: No Definite Risk - Focused Exam Vital Signs: Vital Signs Temp Pulse Resp BP Pulse Ox 05/17/20 09:10 76 05/17/20 07:57 99.9 F 108 H 22 H 115/84 97 - My Orders Last 24 Hours: My Active Orders 05/17/20 08:39 Sodium Chloride 0.9% [Saline Flush] 10 ml FLUSH ASDIRECTED PRN 05/17/20 08:40 EKG 12 Lead [EKG Documentation Completion] [RC] STAT Peripheral IV Care [RC] . DIRECTED Blood Culture x2 Reflex Set [OM.PC] Stat Peripheral IV Insertion Adult [OM.PC] Stat 05/17/20 08:42 C-REACTIVE PROTEIN [CHEM] Stat CPK [CREATINE KINASE,CK] [CHEM] Stat CULTURE BLOOD [BC] Stat FERRITIN [CHEM] Stat INR,PT,PROTHROMBIN TIME [COAG] Stat LACTATE DEHYDROGENASE,LDH [CHEM] Stat PTT,PARTIAL THROMBOPLSTIN TIME [COAG] Stat 05/17/20 09:04 RT Aerosol Therapy [RC] ASDIRECTED 05/17/20 09:17 CULTURE BLOOD [BC] Stat 05/17/20 10:09 Azithromycin [Zithromax] 500 mg Sodium Chloride 0.9% [Normal Saline (AdvBag)] 250 ml IV ONETIME - Assessment/Plan Last 24 Hours: My Active Orders 05/17/20 08:39 Sodium Chloride 0.9% [Saline Flush] 10 ml FLUSH ASDIRECTED PRN 05/17/20 08:40 EKG 12 Lead [EKG Documentation Completion] [RC] STAT Peripheral IV Care [RC] . DIRECTED Blood Culture x2 Reflex Set [OM.PC] Stat Peripheral IV Insertion Adult [OM.PC] Stat 05/17/20 08:42 C-REACTIVE PROTEIN [CHEM] Stat CPK [CREATINE KINASE,CK] [CHEM] Stat CULTURE BLOOD [BC] Stat FERRITIN [CHEM] Stat INR,PT,PROTHROMBIN TIME [COAG] Stat LACTATE DEHYDROGENASE,LDH [CHEM] Stat PTT,PARTIAL THROMBOPLSTIN TIME [COAG] Stat 05/17/20 09:04 RT Aerosol Therapy [RC] ASDIRECTED 05/17/20 09:17 CULTURE BLOOD [BC] Stat 05/17/20 10:09 Azithromycin [Zithromax] 500 mg Sodium Chloride 0.9% [Normal Saline (AdvBag)] 250 ml IV ONETIME
[2020-05-17] MEDS: Sodium Chloride 0.9% 10 ML Syringe FLUSH PRN ×2 (08:53→16:48)
[2020-05-17] MEDS ORDERED: Albuterol/Ipratropium 3.0-0.5 MG/3 ML Neb Soln NEB ONE (09:03)
[2020-05-17 09:15] LABS: ANION GAP 15.5 mEq/L (7-13); CHLORIDE,CL 102 mmol/L (98-107); SODIUM,NA 137 mmol/L (136-145)
[2020-05-17] MEDS ORDERED: methylPREDNISolone Sodium Succinate 125 MG/2 ML SDV IVPUSH ONE (09:33)
[2020-05-17] MEDS ORDERED: Sodium Chloride 0.9% 1,000 ML IV ONE (09:33)
[2020-05-17] MEDS ORDERED: Famotidine 20 MG/2 ML SDV IVPUSH ONE (10:08)
[2020-05-17] MEDS ORDERED: Dexamethasone 4 MG/ML SDV IVPUSH ONE (10:08)
[2020-05-17] MEDS ORDERED: Azithromycin 500 MG in Sodium Chloride 0.9% 250 ML IV ONE (10:09)
[2020-05-17 10:37] LABS: PTT,PARTIAL THROMBOPLSTIN TIME 24.2 SEC (22.0-34.0)
--- NOTE | 2020-05-17 10:45 | CT ---
EXAMINATION: Chest wo Cont SEX: Male AGE: 60 years CLINICAL HISTORY: 60-year-old male with history renal cancer (right nephrectomy), cough and dyspnea who has a close family member (daughter) with COVID 19 viral infection (this patient has tested "negative" x3). CT exam 10 May (one week ago with serum D dimer 1200) revealed "normal CT angiogram of the chest i.e. no evidence for pulmonary embolism or acute cardiopulmonary disease". Follow-up please. Scan technique: Volume acquisition of data emergency unenhanced CT scan of the chest (bony thorax, lungs and mediastinum) obtained with the patient lying supine on the Siemens multi slice CT scanner [place], [place]. All data archived in the PACS system for storage, reformatting axial/sagittal/coronal planes and study (lung/mediastinal windows). Interpretation: Abnormal. 1. Patchy new peripheral groundglass" lung densities lingula left upper lobe, both lower lobes and less prominently right upper lobe characteristic of viral COVID infection (consistent with pneumonia). 2. No lung mass or hilar lymphadenopathy (small subcarinal lymph nodes). No focal lobar consolidation with air bronchograms or atelectasis/collapse. No pleural effusions. 3. Normal cardiac silhouette (size and configuration. No pericardial effusion. No alveolar edema. 4. Normal caliber thoracic aorta. No aneurysm or dissection. 5. Gallbladder, unenhanced liver, stomach, spleen, pancreas and adrenal glands unremarkable i.e. negative.
[2020-05-17] MEDS ORDERED: Albuterol 6.7 GM Inhaler INH PRN (13:10)
[2020-05-17] MEDS ORDERED: Docusate Sodium 100 MG Cap PO PRN (13:19)
[2020-05-17] MEDS ORDERED: Ondansetron 4 MG/2 ML SDV IVPUSH PRN (13:19)
--- NOTE | 2020-05-17 13:40 | PCM.HP ---
H&P History of Present Illness - General Date of Service: 05/17/20 Admit Problem/Dx: Admission Diagnosis/Problem Admission Diagnosis/Problem Viral pneumonia Source of Information: Patient, Provider - Related Data Allergies/Adverse Reactions: Allergies Allergy/AdvReac Type Severity Reaction Status Date / Time No Known Allergies Allergy Verified 05/17/20 08:31 Home Medications: Home Meds . [No Known Home Meds] 01/05/17 [History] Past Medical History HEENT History: Reports: None Cardiovascular History: Reports: None Respiratory History: Reports: None Gastrointestinal History: Reports: Diverticulosis, Other (See Below) Other Gastrointestinal History: HX OF RECURRENT diverticulitis Genitourinary History: Reports: Other (See Below) Other Genitourinary History: kidney cancer 2008 Musculoskeletal History: Reports: Arthritis Other Musculoskeletal History: arthritis right hand Neurological History: Reports: None Psychiatric History: Reports: None Endocrine/Metabolic History: Reports: Obesity/BMI 30+ Hematologic History: Reports: None Immunologic History: Reports: None Oncologic (Cancer) History: Reports: Renal Dermatologic History: Reports: None - Infectious Disease History Infectious Disease History: Reports: Chicken Pox - Past Surgical History Head Surgeries/Procedures: Reports: None HEENT Surgical History: Reports: None Cardiovascular Surgical History: Reports: None GI Surgical History: Reports: Colonoscopy Male Surgical History: Reports: Nephrectomy Other Male Surgeries/Procedures: R NEPHRECTOMY D/T CA Social & Family History - Family History Family Medical History: Noncontributory - Tobacco Use Tobacco Use Status *Q: Never Tobacco User Second Hand Smoke Exposure: No - Caffeine Use Caffeine Use: Reports: None - Recreational Drug Use Recreational Drug Use: No - Living Situation & Occupation Living situation: Reports: , with Family Occupation: Employed H&P Review of Systems - Review of Systems: Review Of Systems: See Below General: Reports: Fever, Chills, Malaise Pulmonary: Reports: Shortness of Breath Cardiovascular: Denies: Chest Pain, Edema Gastrointestinal: Denies: Abdominal Pain Exam - Exam Exam: See Below - Vital Signs Vital Signs: Last Vital Signs Temp 98.7 F 05/17/20 12:17 Pulse 85 05/17/20 12:17 Resp 20 05/17/20 12:17 BP 107/76 05/17/20 12:17 Pulse Ox 95 05/17/20 12:17 Weight: 262 lb - Exam General: Alert, Oriented Neck: Supple Lungs: Normal Respiratory Effort, Decreased Breath Sounds Cardiovascular: Regular Rate, Regular Rhythm GI/Abdominal Exam: Normal Bowel Sounds, Soft, Non-Tender Extremities: No Pedal Edema - Patient Data Lab Results Last 24 hrs: Laboratory Results - last 24 hr 05/17/20 05/17/20 05/17/20 Range/Units 07:52 08:42 08:42 WBC 5.2 (5.0-10.0) 10^3/uL RBC 5.33 (4.6-6.2) 10^6/uL Hgb 16.6 (14.0-18.0) g/dL Hct 48.6 (40.0-54.0) % MCV 91.2 (80-100) fL MCH 31.1 (27.0-34.0) pg MCHC 34.2 (33.0-35.0) g/dL Plt Count 185 (150-450) 10^3/uL Neut % (Auto) 69.8 (42.2-75.2) % Lymph % (Auto) 15.2 L (20.5-50.1) % Potter % (Auto) 14.6 H (2-8) % Eos % (Auto) 0.2 L (1.0-3.0) % Baso % (Auto) 0.2 (0.0-1.0) % PT (9.0-12.0) SEC INR (0.9-1.2) APTT (22.0-34.0) SEC D-Dimer, Quantitative (0-400) ng/mL Sodium 137 (136-145) mmol/L Potassium 3.5 (3.5-5.1) mmol/L Chloride 102 (98-107) mmol/L Carbon Dioxide 23 (21-32) mmol/L Anion Gap 15.5 H (7-13) mEq/L BUN 28 H (7-18) mg/dL Creatinine 1.35 H (0.70-1.30) mg/dL Est Cr Clr Drug Dosing 65.47 mL/min Estimated GFR (MDRD) 54 BUN/Creatinine Ratio 20.7 (No establ ref range) Glucose 93 (74-99) mg/dL Lactic Acid (0.4-2.0) mmol/L Calcium 8.7 (8.5-10.1) mg/dL Ferritin (26-388) mg/mL Total Bilirubin 1.0 (0.2-1.0) mg/dL AST 44 H (15-37) U/L ALT 138 H (16-63) U/L Alkaline Phosphatase 74 (46-116) U/L Lactate Dehydrogenase (85-227) U/L Creatine Kinase (39-308) U/L Troponin I < 0.017 (0.000-0.056) ng/mL C-Reactive Protein (0.0-0.9) mg/dL B-Natriuretic Peptide 43 (0-100) pg/ml Total Protein 7.2 (6.4-8.2) g/dL Albumin 3.2 L (3.4-5.0) g/dL Globulin 4.0 Albumin/Globulin Ratio 0.80 SARS CoV-2 RNA Rapid NATI Negative (NEGATIVE) 05/17/20 05/17/20 05/17/20 Range/Units 08:42 08:42 08:42 WBC (5.0-10.0) 10^3/uL RBC (4.6-6.2) 10^6/uL Hgb (14.0-18.0) g/dL Hct (40.0-54.0) % MCV (80-100) fL MCH (27.0-34.0) pg MCHC (33.0-35.0) g/dL Plt Count (150-450) 10^3/uL Neut % (Auto) (42.2-75.2) % Lymph % (Auto) (20.5-50.1) % Potter % (Auto) (2-8) % Eos % (Auto) (1.0-3.0) % Baso % (Auto) (0.0-1.0) % PT 10.3 (9.0-12.0) SEC INR 1.1 (0.9-1.2) APTT 24.2 (22.0-34.0) SEC D-Dimer, Quantitative 497 H (0-400) ng/mL Sodium (136-145) mmol/L Potassium (3.5-5.1) mmol/L Chloride (98-107) mmol/L Carbon Dioxide (21-32) mmol/L Anion Gap (7-13) mEq/L BUN (7-18) mg/dL Creatinine (0.70-1.30) mg/dL Est Cr Clr Drug Dosing mL/min Estimated GFR (MDRD) BUN/Creatinine Ratio (No establ ref range) Glucose (74-99) mg/dL Lactic Acid (0.4-2.0) mmol/L Calcium (8.5-10.1) mg/dL Ferritin 1608 H (26-388) mg/mL Total Bilirubin (0.2-1.0) mg/dL AST (15-37) U/L ALT (16-63) U/L Alkaline Phosphatase (46-116) U/L Lactate Dehydrogenase (85-227) U/L Creatine Kinase (39-308) U/L Troponin I (0.000-0.056) ng/mL C-Reactive Protein (0.0-0.9) mg/dL B-Natriuretic Peptide (0-100) pg/ml Total Protein (6.4-8.2) g/dL Albumin (3.4-5.0) g/dL Globulin Albumin/Globulin Ratio SARS CoV-2 RNA Rapid NATI (NEGATIVE) 05/17/20 05/17/20 Range/Units 08:42 09:17 WBC (5.0-10.0) 10^3/uL RBC (4.6-6.2) 10^6/uL Hgb (14.0-18.0) g/dL Hct (40.0-54.0) % MCV (80-100) fL MCH (27.0-34.0) pg MCHC (33.0-35.0) g/dL Plt Count (150-450) 10^3/uL Neut % (Auto) (42.2-75.2) % Lymph % (Auto) (20.5-50.1) % Potter % (Auto) (2-8) % Eos % (Auto) (1.0-3.0) % Baso % (Auto) (0.0-1.0) % PT (9.0-12.0) SEC INR (0.9-1.2) APTT (22.0-34.0) SEC D-Dimer, Quantitative (0-400) ng/mL Sodium (136-145) mmol/L Potassium (3.5-5.1) mmol/L Chloride (98-107) mmol/L Carbon Dioxide (21-32) mmol/L Anion Gap (7-13) mEq/L BUN (7-18) mg/dL Creatinine (0.70-1.30) mg/dL Est Cr Clr Drug Dosing mL/min Estimated GFR (MDRD) BUN/Creatinine Ratio (No establ ref range) Glucose (74-99) mg/dL Lactic Acid 1.3 (0.4-2.0) mmol/L Calcium (8.5-10.1) mg/dL Ferritin (26-388) mg/mL Total Bilirubin (0.2-1.0) mg/dL AST (15-37) U/L ALT (16-63) U/L Alkaline Phosphatase (46-116) U/L Lactate Dehydrogenase 212 (85-227) U/L Creatine Kinase 44 (39-308) U/L Troponin I (0.000-0.056) ng/mL C-Reactive Protein 1.9 H (0.0-0.9) mg/dL B-Natriuretic Peptide (0-100) pg/ml Total Protein (6.4-8.2) g/dL Albumin (3.4-5.0) g/dL Globulin Albumin/Globulin Ratio SARS CoV-2 RNA Rapid NATI (NEGATIVE) Result Diagrams: 05/17/20 08:42 05/17/20 08:42 - Problem List (1) COVID-19 SNOMED Code(s): 923578771 ICD Code: U07.1 - COVID-19 Status: Acute Current Visit: Yes (2) Acute respiratory failure due to COVID-19 SNOMED Code(s): 526218776 ICD Code: U07.1 - COVID-19; J96.00 - ACUTE RESPIRATORY FAILURE, UNSP W HYPOXIA OR HYPERCAPNIA Status: Acute Current Visit: Yes (3) Lower respiratory tract infection due to COVID-19 virus SNOMED Code(s): 926822972893031026 ICD Code: U07.1 - COVID-19; J22 - UNSPECIFIED ACUTE LOWER RESPIRATORY INFECTION Status: Acute Current Visit: Yes Problem List Initiated/Reviewed/Updated: Yes Orders Last 24hrs: Active Orders 24 hr Category Date Time Status Admission Diagnosis [ADT] Routine ADT 05/17/20 11:00 Ordered Admission Status [Patient Status] [ADT] Routine ADT 05/17/20 11:00 Active Antiembolic Devices [RC] PER UNIT ROUTINE Care 05/17/20 13:20 Ordered Oxygen Therapy [RC] PRN Care 05/17/20 13:19 Ordered RT Post Treatment Assessment [RC] Click to Edit Care 05/17/20 13:10 Ordered RT Pre-Treatment Assessment [RC] Click to Edit Care 05/17/20 13:10 Ordered Up With Assistance [RC] ASDIRECTED Care 05/17/20 13:19 Ordered VTE/DVT Education [RC] PER UNIT ROUTINE Care 05/17/20 13:19 Ordered Vital Signs [RC] Q4H Care 05/17/20 13:19 Ordered Regular Diet [DIET] Diet 05/17/20 Dinner Ordered BASIC METABOLIC PANEL,BMP [CHEM] AM Lab 05/18/20 05:15 Ordered CBC WITH AUTO DIFF [HEME] AM Lab 05/18/20 05:15 Ordered CULTURE BLOOD [BC] Stat Lab 05/17/20 08:42 Received CULTURE BLOOD [BC] Stat Lab 05/17/20 09:17 Received CULTURE SPUTUM + SMEAR [RM] Routine Lab 05/17/20 13:08 Ordered PROCALCITONIN [REF] Routine Lab 05/18/20 05:00 Ordered Acetaminophen [TylenoL] Med 05/17/20 13:19 Ordered 650 mg PO Q4H PRN Albuterol [Proventil HFA] Med 05/17/20 13:10 Ordered 2 puff INH Q4HR PRN Docusate Sodium [Colace] Med 05/17/20 13:19 Ordered 100 mg PO BID PRN Enoxaparin [Lovenox] Med 05/17/20 13:45 Ordered 40 mg SUBCUT BID Levofloxacin/Dextrose 5%-Water [Levaquin in D5W 750 MG/ Med 05/17/20 13:30 Ordered 150 ML] 750 mg Premix Bag 1 bag IV Q24H Mometasone/Formoterol [Dulera 200-5 MCG] Med 05/17/20 18:00 Ordered 2 puff IH BIDRT Ondansetron [Zofran] Med 05/17/20 13:19 Ordered 4 mg IVPUSH Q6H PRN Sodium Chloride 0.9% [Saline Flush] Med 05/17/20 08:39 Active 10 ml FLUSH ASDIRECTED PRN Temazepam [Restoril] Med 05/17/20 13:19 Ordered 15 mg PO BEDTIME PRN dexAMETHasone Med 05/18/20 09:00 Ordered 6 mg PO DAILY Antiembolic Hose [OM.PC] Per Unit Routine Oth 05/17/20 13:19 Ordered Blood Culture x2 Reflex Set [OM.PC] Stat Oth 05/17/20 08:40 Ordered Peripheral IV Insertion Adult [OM.PC] Stat Oth 05/17/20 08:40 Ordered Resuscitation Status Routine Resus Stat 05/17/20 13:19 Ordered Medication Orders Acetaminophen (Tylenol) 650 mg PO Q4H PRN PRN Reason: Pain (Mild 1-3)/fever Albuterol (Proventil Hfa) 0 gm INH Q4HR PRN PRN Reason: Wheezing Dexamethasone (Dexamethasone) 6 mg PO DAILY [facility] Docusate Sodium (Colace) 100 mg PO BID PRN PRN Reason: Constipation Enoxaparin Sodium (Lovenox) 40 mg SUBCUT BID [facility] Levofloxacin/Dextrose 750 mg/ (Premix) 150 mls @ 100 mls/hr IV Q24H [facility] Mometasone Furoate/Formoterol Fumar (Dulera 200-5 Mcg) 2 puff IH BIDRT [facility] Ondansetron HCl (Zofran) 4 mg IVPUSH Q6H PRN PRN Reason: Nausea/Vomiting Sodium Chloride (Saline Flush) 10 ml FLUSH ASDIRECTED PRN PRN Reason: Keep Vein Open Last Admin: 05/17/20 08:53 Dose: 10 ml Documented by: [id number] Temazepam (Restoril) 15 mg PO BEDTIME PRN PRN Reason: Sleep Assessment/Plan Comment:: 60-year-old gentleman who presented about 10 days of respiratory infection symptoms. 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 07 May the patient does not develop cough, fever, body ache. During the past 10 days the patient has been evaluated multiple times. He tested negative for Covid on the and on the . As outpatient the patient was treated with Zithromax, Decadron, Rocephin, DuoNeb Symptoms have improved but the shortness of breath was getting worse and came to the emergency room today. Was noted to have hypoxemia on room air. The patients daughter had similar symptoms and tested positive for Covid a few days prior to his symptom onset. Acute respiratory infection The patient has Covid close contact His laboratories studies and CT chest compatible with Covid infection. Nevertheless multiple screening tests were negative. Symptoms started about 10 days prior to this admission. The patient is most likely noninfectious by now. He is out of range for treatment with plasma or remdesivir I would continue steroids and supportive treatment Use inhalers scheduled and as needed We will also evaluate for bacterial pulmonary infection, atypical pneumonia. Obtain blood culture, sputum culture Obtain pro-calcitonin Treat empirically with levofloxacin Acute hypoxemic respiratory failure Supplement oxygen as needed The patient is noted to have elevated d-dimer Which would go along with a Covid infection. Will use Lovenox twice a day DVT prophylaxis
[2020-05-17] MEDS: Enoxaparin 40 MG/0.4 ML Syringe SUBCUT SCH ×2 (15:12→21:20)
[2020-05-17] MEDS: Levofloxacin/Dextrose 5%-Water 750 MG in Premix Bag 1 BAG IV SCH (15:13)
[2020-05-17] MEDS: Formoterol/Mometasone 200-5 MCG 8.8 GM Inhaler IH SCH (18:48)
[2020-05-17] MEDS: Temazepam 15 MG Cap PO PRN (21:18)
[2020-05-17] MEDS: Acetaminophen 325 MG Tab PO PRN (21:19)
[2020-05-18 07:14] LABS: ANION GAP 13.3 mEq/L (7-13); CHLORIDE,CL 103 mmol/L (98-107); SODIUM,NA 139 mmol/L (136-145)
[2020-05-18] MEDS: Enoxaparin 40 MG/0.4 ML Syringe SUBCUT SCH ×2 (08:47→21:18)
[2020-05-18] MEDS: Dexamethasone 4 MG Tab PO SCH (08:47)
[2020-05-18] MEDS: Formoterol/Mometasone 200-5 MCG 8.8 GM Inhaler IH SCH ×2 (08:48→20:23)
[2020-05-18] MEDS: Levofloxacin/Dextrose 5%-Water 750 MG in Premix Bag 1 BAG IV SCH (13:44)
--- NOTE | 2020-05-18 14:09 | PCM.PN ---
- General Info Date of Service: 05/18/20 Admission Dx/Problem (Free Text): Admission Diagnosis/Problem Admission Diagnosis/Problem Viral pneumonia Subjective Update: shortness of breath is improved Has remained on oxygen. Feels generally weak. No associated chest pain, abdominal pain. Shortness of breath is better with inhalers - Patient Data Vitals - Most Recent: Last Vital Signs Temp 97.6 F 05/18/20 12:00 Pulse 54 L 05/18/20 12:00 Resp 20 05/18/20 12:00 BP 105/71 05/18/20 12:00 Pulse Ox 98 05/18/20 12:00 Weight - Most Recent: 262 lb I&O - Last 24 Hours: Intake & Output 05/17/20 05/18/20 05/18/20 22:59 06:59 14:59 Intake Total 270 240 Balance 270 240 Lab Results Last 24 Hours: Laboratory Results - last 24 hr 05/18/20 05/18/20 Range/Units 05:50 05:50 WBC 3.8 L (5.0-10.0) 10^3/uL RBC 5.17 (4.6-6.2) 10^6/uL Hgb 15.6 (14.0-18.0) g/dL Hct 47.6 (40.0-54.0) % MCV 92.1 (80-100) fL MCH 30.2 (27.0-34.0) pg MCHC 32.8 L (33.0-35.0) g/dL Plt Count 180 (150-450) 10^3/uL Neut % (Auto) 70.6 (42.2-75.2) % Lymph % (Auto) 15.1 L (20.5-50.1) % [place] % (Auto) 14.3 H (2-8) % Eos % (Auto) 0.0 L (1.0-3.0) % Baso % (Auto) 0.0 (0.0-1.0) % Add Manual Diff Yes Neutrophils % (Manual) 64 (42-75) % Band Neutrophils % 7 % Lymphocytes % (Manual) 20 (20-50) % Monocytes % (Manual) 9 H (2-8) % Vacuolated Monocytes Few Toxic Granulation 1+ slight Platelet Estimate Adequate Anisocytosis 1+ slight Sodium 139 (136-145) mmol/L Potassium 4.3 (3.5-5.1) mmol/L Chloride 103 (98-107) mmol/L Carbon Dioxide 27 (21-32) mmol/L Anion Gap 13.3 H (7-13) mEq/L BUN 27 H (7-18) mg/dL Creatinine 1.21 (0.70-1.30) mg/dL Est Cr Clr Drug Dosing 73.04 mL/min Estimated GFR (MDRD) > 60 Glucose 138 H (74-99) mg/dL Calcium 9.0 (8.5-10.1) mg/dL [place]olome Results Last 24 Hours: Microbiology 05/17/20 09:17 Aerobic Blood Culture - Preliminary Blood - Venous - Lab Draw NO GROWTH AFTER 1 DAY Anaerobic Blood Culture - Preliminary NO GROWTH AFTER 1 DAY 05/17/20 08:42 Aerobic Blood Culture - Preliminary Blood - Arm, Right NO GROWTH AFTER 1 DAY Anaerobic Blood Culture - Preliminary NO GROWTH AFTER 1 DAY Med Orders - Current: Current Medications Acetaminophen (Tylenol) 650 mg PO Q4H PRN PRN Reason: Pain (Mild 1-3)/fever Last Admin: 05/17/20 21:19 Dose: 650 mg Documented by: Albuterol (Proventil Hfa) 0 gm INH Q4HR PRN PRN Reason: Wheezing Dexamethasone (Dexamethasone) 6 mg PO DAILY [facility] Last Admin: 05/18/20 08:47 Dose: 6 mg Documented by: Docusate Sodium (Colace) 100 mg PO BID PRN PRN Reason: Constipation Enoxaparin Sodium (Lovenox) 40 mg SUBCUT BID [facility] Last Admin: 05/18/20 08:47 Dose: 40 mg Documented by: Levofloxacin/Dextrose 750 mg/ (Premix) 150 mls @ 100 mls/hr IV Q24H [facility] Last Admin: 05/18/20 13:44 Dose: 100 mls/hr Documented by: Mometasone Furoate/Formoterol Fumar (Dulera 200-5 Mcg) 2 puff IH BIDRT [facility] Last Admin: 05/18/20 08:48 Dose: 2 puff Documented by: Ondansetron HCl (Zofran) 4 mg IVPUSH Q6H PRN PRN Reason: Nausea/Vomiting Sodium Chloride (Saline Flush) 10 ml FLUSH ASDIRECTED PRN PRN Reason: Keep Vein Open Last Admin: 05/17/20 16:48 Dose: 10 ml Documented by: Temazepam (Restoril) 15 mg PO BEDTIME PRN PRN Reason: Sleep Last Admin: 05/17/20 21:18 Dose: 15 mg Documented by: Discontinued Medications Albuterol/Ipratropium (Duoneb 3.0-0.5 Mg/3 Ml) 3 ml NEB ONETIME ONE Stop: 05/17/20 09:04 Last Admin: 05/17/20 09:17 Dose: 3 ml Documented by: Dexamethasone (Decadron) 6 mg IVPUSH ONETIME ONE Stop: 05/17/20 10:09 Last Admin: 05/17/20 10:15 Dose: 6 mg Documented by: Famotidine (Pepcid) 20 mg IVPUSH ONETIME ONE Stop: 05/17/20 10:09 Last Admin: 05/17/20 10:15 Dose: 20 mg Documented by: Sodium Chloride (Normal Saline) 1,000 mls @ 999 mls/hr IV .BOLUS ONE Stop: 05/17/20 10:33 Last Admin: 05/17/20 10:15 Dose: Not Given Documented by: Azithromycin 500 mg/ Sodium (Chloride) 250 mls @ 250 mls/hr IV ONETIME ONE Stop: 05/17/20 11:08 Last Admin: 05/17/20 10:18 Dose: 250 mls/hr Documented by: Methylprednisolone Sodium Succinate (Solu-Medrol) 125 mg IVPUSH ONETIME ONE Stop: 05/17/20 09:34 Last Admin: 05/17/20 10:15 Dose: Not Given Documented by: - Exam General: Alert, Oriented Neck: Supple Lungs: Normal Respiratory Effort, Decreased Breath Sounds Cardiovascular: Regular Rate, Regular Rhythm GI/Abdominal Exam: Normal Bowel Sounds, Soft, Non-Tender Extremities: No Pedal Edema Sepsis Event Note - Evaluation Sepsis Screening Result: No Definite Risk - Focused Exam Vital Signs: Vital Signs Temp Pulse Resp BP BP Pulse Ox 05/18/20 12:00 97.6 F 54 L 20 105/71 98 05/18/20 08:27 97.3 F 56 L 20 95/67 98 05/18/20 04:00 97.2 F 58 L 16 105/58 L 98 - Problem List & Annotations (1) COVID-19 SNOMED Code(s): 068965646 Code(s): U07.1 - COVID-19 Status: Acute Current Visit: Yes (2) Acute respiratory failure due to COVID-19 SNOMED Code(s): 524350988 Code(s): U07.1 - COVID-19; J96.00 - ACUTE RESPIRATORY FAILURE, UNSP W HYPOXIA OR HYPERCAPNIA Status: Acute Current Visit: Yes (3) Lower respiratory tract infection due to COVID-19 virus SNOMED Code(s): 160241679111786442 Code(s): U07.1 - COVID-19; J22 - UNSPECIFIED ACUTE LOWER RESPIRATORY INFECTION Status: Acute Current Visit: Yes - Problem List Review Problem List Initiated/Reviewed/Updated: Yes - My Orders Last 24 Hours: My Active Orders 05/17/20 13:08 CULTURE SPUTUM + SMEAR [RM] Routine 05/17/20 13:10 RT Post Treatment Assessment [RC] Click to Edit RT Pre-Treatment Assessment [RC] Click to Edit Albuterol [Proventil HFA] 0 gm INH Q4HR PRN 05/17/20 13:19 Oxygen Therapy [RC] .PRN Up With Assistance [RC] ASDIRECTED VTE/DVT Education [RC] PER UNIT ROUTINE Vital Signs [RC] Q4H Acetaminophen [TylenoL] 650 mg PO Q4H PRN Docusate Sodium [Colace] 100 mg PO BID PRN Ondansetron [Zofran] 4 mg IVPUSH Q6H PRN Temazepam [Restoril] 15 mg PO BEDTIME PRN Antiembolic Hose [OM.PC] Per Unit Routine Resuscitation Status Routine 05/17/20 13:20 Antiembolic Devices [RC] PER UNIT ROUTINE 05/17/20 13:30 Levofloxacin/Dextrose 5%-Water [Levaquin in D5W 750 MG/150 ML] 750 mg Premix Bag 1 bag IV Q24H 05/17/20 13:45 Enoxaparin [Lovenox] 40 mg SUBCUT BID 05/17/20 Dinner Regular Diet [DIET] 05/17/20 17:41 Flutter Valve Therapy [RT Chest Physiotherapy] [RC] ASDIRECTED IS (RT) [RT Incentive Spirometry] [RC] ASDIRECTED 05/17/20 18:00 Mometasone/Formoterol [Dulera 200-5 MCG] 2 puff IH BIDRT 05/18/20 05:50 PROCALCITONIN [REF] Routine 05/18/20 09:00 dexAMETHasone 6 mg PO DAILY 05/19/20 05:11 DD [D-DIMER QUANTITATIVE] [COAG] AM 05/19/20 05:15 BASIC METABOLIC PANEL,BMP [CHEM] AM CBC WITH AUTO DIFF [HEME] AM 05/20/20 05:11 DD [D-DIMER QUANTITATIVE] [COAG] AM 05/21/20 05:11 DD [D-DIMER QUANTITATIVE] [COAG] AM 05/22/20 05:11 DD [D-DIMER QUANTITATIVE] [COAG] AM - Plan Plan:: 60-year-old gentleman who presented about 10 days of respiratory infection symptoms. 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 07 May the patient does not develop cough, fever, body ache. During the past 10 days the patient has been evaluated multiple times. He tested negative for Covid on the and on the . As outpatient the patient was treated with Zithromax, Decadron, Rocephin, DuoNeb Symptoms have improved but the shortness of breath was getting worse and came to the emergency room today. Was noted to have hypoxemia on room air. The patients daughter had similar symptoms and tested positive for Covid a few days prior to his symptom onset. Acute respiratory infection The patient has Covid close contact His laboratories studies and CT chest is most compatible with Covid infection. Nevertheless multiple screening tests were negative. Symptoms started about 10 days prior to this admission. The patient is most likely noninfectious by now. He is out of range for treatment with plasma or remdesivir I will treat with dexamethasone and supportive treatment Use inhalers scheduled and as needed We will also evaluate for bacterial pulmonary infection, atypical pneumonia. pending blood culture, sputum culture pending pro-calcitonin Treat empirically with levofloxacin in the meantime Acute hypoxemic respiratory failure Supplement oxygen as needed The patient is noted to have elevated d-dimer Which would go along with a Covid infection. Will use Lovenox twice a day DVT prophylaxis
[2020-05-18] MEDS: Temazepam 15 MG Cap PO PRN (21:19)
[2020-05-19 07:15] LABS: ANION GAP 13.3 mEq/L (7-13); CHLORIDE,CL 103 mmol/L (98-107); SODIUM,NA 138 mmol/L (136-145)
[2020-05-19] MEDS: Enoxaparin 40 MG/0.4 ML Syringe SUBCUT SCH ×2 (08:37→21:43)
[2020-05-19] MEDS: Dexamethasone 4 MG Tab PO SCH (08:37)
[2020-05-19] MEDS: Formoterol/Mometasone 200-5 MCG 8.8 GM Inhaler IH SCH ×2 (08:39→18:12)
[2020-05-19] MEDS ORDERED: Benzocaine/Cetylpyridinium/Menthol Lozenge MUCMEM PRN (11:27)
--- NOTE | 2020-05-19 13:00 | PCM.PN ---
- General Info Date of Service: 05/19/20 Admission Dx/Problem (Free Text): Admission Diagnosis/Problem Admission Diagnosis/Problem Viral pneumonia Subjective Update: shortness of breath is improved still has remained on oxygen. Feels generally weak but improving, up and walking around in room. No associated chest pain, abdominal pain. - Review of Systems General: Reports: Weakness, Fatigue, Malaise. Denies: Fever Pulmonary: Reports: Shortness of Breath Cardiovascular: Denies: Chest Pain Gastrointestinal: Denies: Abdominal Pain Neurological: Denies: Confusion - Patient Data Vitals - Most Recent: Last Vital Signs Temp 98.4 F 05/19/20 11:39 Pulse 74 05/19/20 11:39 Resp 20 05/19/20 11:39 BP 90/71 05/19/20 11:39 Pulse Ox 98 05/19/20 11:39 Weight - Most Recent: 262 lb I&O - Last 24 Hours: Intake & Output 05/18/20 05/19/20 05/19/20 22:59 06:59 14:59 Intake Total 120 660 120 Balance 120 660 120 Lab Results Last 24 Hours: Laboratory Results - last 24 hr 05/19/20 05/19/20 05/19/20 Range/Units 05:57 05:57 05:57 WBC 7.1 (5.0-10.0) 10^3/uL RBC 5.03 (4.6-6.2) 10^6/uL Hgb 15.4 (14.0-18.0) g/dL Hct 46.3 (40.0-54.0) % MCV 92.0 (80-100) fL MCH 30.6 (27.0-34.0) pg MCHC 33.3 (33.0-35.0) g/dL Plt Count 194 (150-450) 10^3/uL Neut % (Auto) 78.8 H (42.2-75.2) % Lymph % (Auto) 10.4 L (20.5-50.1) % [place] % (Auto) 10.6 H (2-8) % Eos % (Auto) 0.1 L (1.0-3.0) % Baso % (Auto) 0.1 (0.0-1.0) % D-Dimer, Quantitative 147 (0-400) ng/mL Sodium 138 (136-145) mmol/L Potassium 4.3 (3.5-5.1) mmol/L Chloride 103 (98-107) mmol/L Carbon Dioxide 26 (21-32) mmol/L Anion Gap 13.3 H (7-13) mEq/L BUN 27 H (7-18) mg/dL Creatinine 1.13 (0.70-1.30) mg/dL Est Cr Clr Drug Dosing 78.21 mL/min Estimated GFR (MDRD) > 60 Glucose 109 H (74-99) mg/dL Calcium 9.3 (8.5-10.1) mg/dL [place] Results Last 24 Hours: Microbiology 05/17/20 09:17 Aerobic Blood Culture - Preliminary Blood - Venous - Lab Draw NO GROWTH AFTER 2 DAYS Anaerobic Blood Culture - Preliminary NO GROWTH AFTER 2 DAYS 05/17/20 08:42 Aerobic Blood Culture - Preliminary Blood - Arm, Right NO GROWTH AFTER 2 DAYS Anaerobic Blood Culture - Preliminary NO GROWTH AFTER 2 DAYS Med Orders - Current: Current Medications Acetaminophen (Tylenol) 650 mg PO Q4H PRN PRN Reason: Pain (Mild 1-3)/fever Last Admin: 05/17/20 21:19 Dose: 650 mg Documented by: Albuterol (Proventil Hfa) 0 gm INH Q4HR PRN PRN Reason: Wheezing Benzocaine/Menthol (Cepacol Sore Throat) 1 lozenge MUCMEM Q4HR PRN PRN Reason: Cough Dexamethasone (Dexamethasone) 6 mg PO DAILY [facility] Last Admin: 05/19/20 08:37 Dose: 6 mg Documented by: Docusate Sodium (Colace) 100 mg PO BID PRN PRN Reason: Constipation Enoxaparin Sodium (Lovenox) 40 mg SUBCUT BID [facility] Last Admin: 05/19/20 08:37 Dose: 40 mg Documented by: Levofloxacin/Dextrose 750 mg/ (Premix) 150 mls @ 100 mls/hr IV Q24H [facility] Last Admin: 05/18/20 13:44 Dose: 100 mls/hr Documented by: Mometasone Furoate/Formoterol Fumar (Dulera 200-5 Mcg) 2 puff IH BIDRT [facility] Last Admin: 05/19/20 08:39 Dose: 2 puff Documented by: Ondansetron HCl (Zofran) 4 mg IVPUSH Q6H PRN PRN Reason: Nausea/Vomiting Sodium Chloride (Saline Flush) 10 ml FLUSH ASDIRECTED PRN PRN Reason: Keep Vein Open Last Admin: 05/17/20 16:48 Dose: 10 ml Documented by: Temazepam (Restoril) 15 mg PO BEDTIME PRN PRN Reason: Sleep Last Admin: 05/18/20 21:19 Dose: 15 mg Documented by: Discontinued Medications Albuterol/Ipratropium (Duoneb 3.0-0.5 Mg/3 Ml) 3 ml NEB ONETIME ONE Stop: 05/17/20 09:04 Last Admin: 05/17/20 09:17 Dose: 3 ml Documented by: Dexamethasone (Decadron) 6 mg IVPUSH ONETIME ONE Stop: 05/17/20 10:09 Last Admin: 05/17/20 10:15 Dose: 6 mg Documented by: Famotidine (Pepcid) 20 mg IVPUSH ONETIME ONE Stop: 05/17/20 10:09 Last Admin: 05/17/20 10:15 Dose: 20 mg Documented by: Sodium Chloride (Normal Saline) 1,000 mls @ 999 mls/hr IV .BOLUS ONE Stop: 05/17/20 10:33 Last Admin: 05/17/20 10:15 Dose: Not Given Documented by: Azithromycin 500 mg/ Sodium (Chloride) 250 mls @ 250 mls/hr IV ONETIME ONE Stop: 05/17/20 11:08 Last Admin: 05/17/20 10:18 Dose: 250 mls/hr Documented by: Methylprednisolone Sodium Succinate (Solu-Medrol) 125 mg IVPUSH ONETIME ONE Stop: 05/17/20 09:34 Last Admin: 05/17/20 10:15 Dose: Not Given Documented by: - Exam Quality Assessment: Supplemental Oxygen General: Alert, Oriented Neck: Supple Lungs: Normal Respiratory Effort, Decreased Breath Sounds Cardiovascular: Regular Rate, Regular Rhythm GI/Abdominal Exam: Normal Bowel Sounds, Soft, Non-Tender Extremities: No Pedal Edema Sepsis Event Note - Evaluation Sepsis Screening Result: No Definite Risk - Focused Exam Vital Signs: Vital Signs Temp Pulse Resp BP Pulse Ox 05/19/20 11:39 98.4 F 74 20 90/71 98 05/19/20 04:10 97.3 F 57 L 20 98 - Problem List & Annotations (1) COVID-19 SNOMED Code(s): 474290962 Code(s): U07.1 - COVID-19 Status: Acute Current Visit: Yes (2) Acute respiratory failure due to COVID-19 SNOMED Code(s): 414978216 Code(s): U07.1 - COVID-19; J96.00 - ACUTE RESPIRATORY FAILURE, UNSP W HYPOXIA OR HYPERCAPNIA Status: Acute Current Visit: Yes (3) Lower respiratory tract infection due to COVID-19 virus SNOMED Code(s): 303161240079833077 Code(s): U07.1 - COVID-19; J22 - UNSPECIFIED ACUTE LOWER RESPIRATORY INFECTION Status: Acute Current Visit: Yes - Problem List Review Problem List Initiated/Reviewed/Updated: Yes - My Orders Last 24 Hours: My Active Orders 05/19/20 11:27 Benzocaine/Cetylpyrd/Menthol [Cepacol Sore Throat] 1 lozenge MUCMEM Q4HR PRN 05/20/20 05:11 DD [D-DIMER QUANTITATIVE] [COAG] AM 05/21/20 05:11 DD [D-DIMER QUANTITATIVE] [COAG] AM 05/22/20 05:11 DD [D-DIMER QUANTITATIVE] [COAG] AM - Plan Plan:: 60-year-old gentleman who presented about 10 days of respiratory infection symptoms. 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 07 May the patient does not develop cough, fever, body ache. During the past 10 days the patient has been evaluated multiple times. He tested negative for Covid on the and on the . As outpatient the patient was treated with Zithromax, Decadron, Rocephin, DuoNeb Symptoms have improved but the shortness of breath was getting worse and came to the emergency room today. Was noted to have hypoxemia on room air. The patients daughter had similar symptoms and tested positive for Covid a few days prior to his symptom onset. Acute respiratory infection The patient has Covid close contact His laboratories studies and CT chest is most compatible with Covid infection. Nevertheless multiple screening tests were negative. Symptoms started about 10 days prior to this admission. The patient is most likely noninfectious by now. He is out of range for treatment with plasma or remdesivir I will continue to treat with dexamethasone and supportive treatment Use inhalers scheduled and as needed We will also evaluate for bacterial pulmonary infection, atypical pneumonia. pending blood culture, sputum culture pending pro-calcitonin Treat empirically with levofloxacin in the meantime Acute hypoxemic respiratory failure Supplement oxygen as needed will likely need home oxygen The patient is noted to have elevated d-dimer Which would go along with a Covid infection. improving Will use Lovenox twice a day DVT prophylaxis
[2020-05-19] MEDS: Levofloxacin/Dextrose 5%-Water 750 MG in Premix Bag 1 BAG IV SCH (14:05)
[2020-05-19] MEDS: Sodium Chloride 0.9% 10 ML Syringe FLUSH PRN (21:43)
[2020-05-19] MEDS: Temazepam 15 MG Cap PO PRN (21:43)
[2020-05-20] MEDS: Acetaminophen 325 MG Tab PO PRN (07:27)
[2020-05-20] MEDS: Formoterol/Mometasone 200-5 MCG 8.8 GM Inhaler IH SCH (07:28)
[2020-05-20] MEDS: Enoxaparin 40 MG/0.4 ML Syringe SUBCUT SCH (10:19)
[2020-05-20] MEDS: Dexamethasone 4 MG Tab PO SCH (10:20)
--- NOTE | 2020-05-20 11:11 | PCM.DCSUM1 ---
Discharge Summary - Hospital Course Free Text/Narrative:: 60-year-old gentleman who presented about 10 days of respiratory infection symptoms. 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 07 May the patient does not develop cough, fever, body ache. During the past 10 days the patient has been evaluated multiple times. He tested negative for Covid on the and on the . As outpatient the patient was treated with Zithromax, Decadron, Rocephin, DuoNeb Symptoms have improved but the shortness of breath was getting worse and came to the emergency room today. Was noted to have hypoxemia on room air. The patients daughter had similar symptoms and tested positive for Covid a few days prior to his symptom onset. Acute respiratory infection The patient has Covid close contact His laboratories studies and CT chest is most compatible with Covid infection. Nevertheless multiple screening tests were negative. Symptoms started about 10 days prior to this admission. The patient is most likely noninfectious by now. He was out of range for treatment with plasma or remdesivir was treated with dexamethasone and supportive treatment Use inhalers scheduled and as needed We will also evaluate for bacterial pulmonary infection, atypical pneumonia. pro-calcitonin was low - will not use further Abx Acute hypoxemic respiratory failure will need home oxygen room air sats were 88% on 05/20 walking desat was 89% with activity his CXR c/w covid pneumonia I believe he would benefit from home oxygen recommend 2 l/min continuous NC The patient is noted to have elevated d-dimer Which would go along with a Covid infection. improving Will use ASA 325 mg for DVT prophylaxis Diagnosis: Stroke: No - Discharge Data Discharge Date: 05/20/20 Discharge Disposition: Home, Self-Care 01 Condition: Good - Referral to Home Health Primary Care Physician: PCP None - Discharge Diagnosis/Problem(s) (1) COVID-19 SNOMED Code(s): 898010558 ICD Code: U07.1 - COVID-19 Status: Acute Current Visit: Yes (2) Acute respiratory failure due to COVID-19 SNOMED Code(s): 204534318 ICD Code: U07.1 - COVID-19; J96.00 - ACUTE RESPIRATORY FAILURE, UNSP W HYPOXIA OR HYPERCAPNIA Status: Acute Current Visit: Yes (3) Lower respiratory tract infection due to COVID-19 virus SNOMED Code(s): 048861435269552538 ICD Code: U07.1 - COVID-19; J22 - UNSPECIFIED ACUTE LOWER RESPIRATORY INFECTION Status: Acute Current Visit: Yes - Patient Instructions Diet: Usual Diet as Tolerated Activity: As Tolerated - Discharge Plan *PRESCRIPTION DRUG MONITORING PROGRAM REVIEWED*: Not Applicable *COPY OF PRESCRIPTION DRUG MONITORING REPORT IN PATIENT HUBER: Not Applicable Prescriptions/Med Rec: Aspirin [Aspirin EC] 325 mg PO DAILY #30 tablet. dexAMETHasone [Dexamethasone] 6 mg PO DAILY #5 tablet Mometasone/Formoterol [Dulera 200-5 MCG] 2 puff IH BIDRT #1 inhaler Albuterol [Proventil HFA] 2 inhalation INH Q4HR PRN #1 inhaler PRN Reason: Wheezing, shortness of breath Home Medications: Home Meds Albuterol [Proventil HFA] 2 inhalation INH Q4HR PRN #1 inhaler 05/20/20 [Rx] Aspirin [Aspirin EC] 325 mg PO DAILY #30 tablet. 05/20/20 [Rx] Mometasone/Formoterol [Dulera 200-5 MCG] 2 puff IH BIDRT #1 inhaler 05/20/20 [R x] dexAMETHasone [Dexamethasone] 6 mg PO DAILY #5 tablet 05/20/20 [Rx] Patient Handouts: COVID-19 Frequently Asked Questions, COVID-19: How to Protect Yourself and Others - CDC, Infection Prevention in the Home, Prevent the Spread of COVID-19 if You Are Sick - [facility] Referrals: PCP,None [Primary Care Provider] - ([facility] in 2-3 days) - Discharge Summary/Plan Comment DC Time >30 min.: No - General Info Date of Service: 05/20/20 Admission Dx/Problem (Free Text: Admission Diagnosis/Problem Admission Diagnosis/Problem Viral pneumonia Subjective Update: shortness of breath is improved still has remained on oxygen overnight. Feels generally weak but improving, up and walking around in room. No associated chest pain, abdominal pain. Functional Status: Reports: Pain Controlled, Tolerating Diet - Review of Systems General: Denies: Fever Pulmonary: Reports: Shortness of Breath Cardiovascular: Denies: Chest Pain, Edema Psychiatric: Denies: Confusion - Patient Data Vitals - Most Recent: Last Vital Signs Temp 100.1 F 05/20/20 08:23 Pulse 96 05/20/20 08:23 Resp 20 05/20/20 08:23 BP 93/63 05/20/20 08:23 Pulse Ox 88 L 05/20/20 08:23 Weight - Most Recent: 262 lb I&O - Last 24 hours: Intake & Output 05/19/20 05/20/20 05/20/20 22:59 06:59 14:59 Intake Total 100 240 Balance 100 240 Lab Results - Last 24 hrs: Laboratory Results - last 24 hr 05/18/20 05/20/20 Range/Units 05:50 05:37 D-Dimer, Quantitative 150 (0-400) ng/mL Procalcitonin 0.08 (<0.10) ng/mL NELI Results - Last 24 hrs: Microbiology 05/17/20 09:17 Aerobic Blood Culture - Preliminary Blood - Venous - Lab Draw NO GROWTH AFTER 3 DAYS Anaerobic Blood Culture - Preliminary NO GROWTH AFTER 3 DAYS 05/17/20 08:42 Aerobic Blood Culture - Preliminary Blood - Arm, Right NO GROWTH AFTER 3 DAYS Anaerobic Blood Culture - Preliminary NO GROWTH AFTER 3 DAYS Med Orders - Current: Current Medications Acetaminophen (Tylenol) 650 mg PO Q4H PRN PRN Reason: Pain (Mild 1-3)/fever Last Admin: 05/20/20 07:27 Dose: 650 mg Documented by: Albuterol (Proventil Hfa) 0 gm INH Q4HR PRN PRN Reason: Wheezing Benzocaine/Menthol (Cepacol Sore Throat) 1 lozenge MUCMEM Q4HR PRN PRN Reason: Cough Dexamethasone (Dexamethasone) 6 mg PO DAILY [facility] Last Admin: 05/20/20 10:20 Dose: 6 mg Documented by: Docusate Sodium (Colace) 100 mg PO BID PRN PRN Reason: Constipation Enoxaparin Sodium (Lovenox) 40 mg SUBCUT BID [facility] Last Admin: 05/20/20 10:19 Dose: 40 mg Documented by: Mometasone Furoate/Formoterol Fumar (Dulera 200-5 Mcg) 2 puff IH BIDRT [facility] Last Admin: 05/20/20 07:28 Dose: 2 puff Documented by: Ondansetron HCl (Zofran) 4 mg IVPUSH Q6H PRN PRN Reason: Nausea/Vomiting Sodium Chloride (Saline Flush) 10 ml FLUSH ASDIRECTED PRN PRN Reason: Keep Vein Open Last Admin: 05/19/20 21:43 Dose: 10 ml Documented by: Temazepam (Restoril) 15 mg PO BEDTIME PRN PRN Reason: Sleep Last Admin: 05/19/20 21:43 Dose: 15 mg Documented by: Discontinued Medications Albuterol/Ipratropium (Duoneb 3.0-0.5 Mg/3 Ml) 3 ml NEB ONETIME ONE Stop: 05/17/20 09:04 Last Admin: 05/17/20 09:17 Dose: 3 ml Documented by: Dexamethasone (Decadron) 6 mg IVPUSH ONETIME ONE Stop: 05/17/20 10:09 Last Admin: 05/17/20 10:15 Dose: 6 mg Documented by: Famotidine (Pepcid) 20 mg IVPUSH ONETIME ONE Stop: 05/17/20 10:09 Last Admin: 05/17/20 10:15 Dose: 20 mg Documented by: Sodium Chloride (Normal Saline) 1,000 mls @ 999 mls/hr IV .BOLUS ONE Stop: 05/17/20 10:33 Last Admin: 05/17/20 10:15 Dose: Not Given Documented by: Azithromycin 500 mg/ Sodium (Chloride) 250 mls @ 250 mls/hr IV ONETIME ONE Stop: 05/17/20 11:08 Last Admin: 05/17/20 10:18 Dose: 250 mls/hr Documented by: Levofloxacin/Dextrose 750 mg/ (Premix) 150 mls @ 100 mls/hr IV Q24H [id number] Last Infusion: 05/19/20 19:50 Dose: Infused Documented by: Methylprednisolone Sodium Succinate (Solu-Medrol) 125 mg IVPUSH ONETIME ONE Stop: 05/17/20 09:34 Last Admin: 05/17/20 10:15 Dose: Not Given Documented by: - Exam Quality Assessment: Reports: Supplemental Oxygen General: Reports: Alert, Oriented Neck: Reports: Supple Lungs: Reports: Clear to Auscultation, Normal Respiratory Effort Cardiovascular: Reports: Regular Rate, Regular Rhythm Extremities: No Pedal Edema Skin: Reports: Warm Neurological: Reports: No New Focal Deficit Psy/Mental Status: Reports: Alert, Normal Affect, Normal Mood
[2020-05-20 12:52] VITALS: BP 97/64; PULSE 94
== END 2020-05-20 15:04 | disposition home or self-care (01) | DRG 133 ==
LOC: DL.ED 07:40 → DL.MS 11:00
PROVIDERS: ADMIT Internal Medicine; ATTEND Internal Medicine
DX: J96.01 Acute respiratory failure with hypoxia (principal); J15.9 Unspecified bacterial pneumonia; R79.89 Other specified abnormal findings of blood chemistry; M19.90 Unspecified osteoarthritis, unspecified site; E66.9 Obesity, unspecified; J12.9 Viral pneumonia, unspecified; J22 Unspecified acute lower respiratory infection; Z79.82 Long term (current) use of aspirin; Z87.19 Personal history of other diseases of the digestive system; Z85.528 Personal history of other malignant neoplasm of kidney; Z68.30 Body mass index [BMI] 30.0-30.9, adult; Z86.19 Personal history of other infectious and parasitic diseases; Z99.81 Dependence on supplemental oxygen; Z79.01 Long term (current) use of anticoagulants; Z20.828 Contact with and (suspected) exposure to other viral communicable diseases
CPT/HCPCS: 36415; 71250; 80048; 80053; 82550; 82728; 83605; 83615; 83880; 84145; 84484; 85025; 85379; 85610; 85730; 86140; 87040; 93005; 94618; 94640; 96365; 96375; 99285-25; A9270-GY; J0456; J1100; J1650; J1956; J3490; J7050; J7620-GY; J8540; U0002

== ENCOUNTER 2023-09-27 06:49 | Day surgery (SDC) | payer BC ==
[2023-09-27] MEDS ORDERED: fentaNYL 100 MCG/2 ML SDV IV ONE (06:50)
[2023-09-27] MEDS ORDERED: Midazolam 1 MG/ML 2 ML SDV IV ONE (06:50)
[2023-09-27] MEDS: Dextrose 5%-0.45% NaCl 1,000 ML IV SCH (07:16)
[2023-09-27] MEDS ORDERED: Midazolam 1 MG/ML 2 ML SDV ONE (07:29)
[2023-09-27] MEDS ORDERED: fentaNYL 100 MCG/2 ML SDV ONE (07:30)
[2023-09-27] MEDS: fentaNYL 100 MCG/2 ML SDV IV ONE ×2 (07:58→07:59)
[2023-09-27] MEDS: Midazolam 1 MG/ML 2 ML SDV IV ONE ×2 (07:59→08:00)
[2023-09-27 10:34] VITALS: BP 115/79; PULSE 59
== END 2023-09-27 09:49 | disposition home or self-care (01) ==
LOC: DL.ENDO 06:49
PROVIDERS: ATTEND Internal Medicine Gastroenterology
DX: K52.9 Noninfective gastroenteritis and colitis, unspecified (principal); R10.13 Epigastric pain; K57.30 Diverticulosis of large intestine without perforation or abscess without bleeding; R07.89 Other chest pain; G47.00 Insomnia, unspecified; E66.01 Morbid (severe) obesity due to excess calories; Z68.37 Body mass index [BMI] 37.0-37.9, adult
CPT/HCPCS: 87077; J2250; J3010; J7042

== ENCOUNTER 2024-02-22 07:58 | Emergency (ER) | payer BC ==
[2024-02-22 08:06] VITALS: BP 121/90; PULSE 88
[2024-02-22] MEDS: Ondansetron 4 MG/2 ML SDV IVPUSH ONE (08:44)
[2024-02-22] MEDS: Ketorolac 30 MG/ML SDV IVPUSH ONE (08:44)
[2024-02-22 08:45] LABS: BASOPHILS PERCENT AUTO 0.5 % (0.0-1.0); EOSINOPHILS PERCENT AUTO 2.9 % (1.0-3.0); HEMATOCRIT 45.4 % (40.0-54.0); HEMOGLOBIN 14.3 g/dL (14.0-18.0); LYMPHOCYTES PERCENT AUTO 19.3 % (20.5-50.1); MEAN CORPUSCULAR HEMOGLOBIN 30.4 pg (27.0-34.0); MEAN CORPUSCULAR HGB CONC 31.5 g/dL (33.0-35.0); MEAN CORPUSCULAR VOLUME 96.4 fL (80-100); MONOCYTES PERCENT AUTO 8.6 % (2-8); NEUTROPHILS PERCENT AUTO 68.7 % (42.2-75.2); PLATELET COUNT,PLT 170 10^3/uL (150-450); RED BLOOD CELL COUNT 4.71 10^6/uL (4.6-6.2); WHITE BLOOD CELL COUNT,WBC 5.6 10^3/uL (5.0-10.0)
[2024-02-22] MEDS: Morphine 4 MG/ML Syringe IVPUSH ONE (08:45)
[2024-02-22 08:55] LABS: A/G RATIO 1.1; ALBUMIN 3.8 g/dL (3.4-5.0); ANION GAP 13.4 mEq/L (7-13); BILIRUBIN TOTAL 0.8 mg/dL (0.2-1.0); BUN/CREATININE RATIO 16.4 (No establ ref range); C-REACTIVE PROTEIN 0.63 ng/dL (<=0.50); CALCIUM 9.3 mg/dL (8.5-10.1); CREATININE 1.4 mg/dL (0.70-1.30); EST CRCL DRUG DOSING (CG) 60.05 mL/min; MAGNESIUM 1.9 mg/dL (1.8-2.4); POTASSIUM,K 4.4 mmol/L (3.5-5.1); PROTEIN TOTAL,TP 7.2 g/dL (6.4-8.2)
[2024-02-22] MEDS: Iopamidol 612 MG/ML 100 ML Bottle IVPUSH ONE (09:09)
[2024-02-22 09:46] LABS: APPEARANCE,URINE CLEAR (CLEAR); BILIRUBIN,URINE NEGATIVE (NEGATIVE); COLOR,URINE YELLOW (YELLOW); GLUCOSE,URINE NEGATIVE (NEGATIVE); KETONES,URINE NEGATIVE (NEGATIVE); LEUKOCYTE ESTERASE,URINE NEGATIVE (NEGATIVE); NITRITE,URINE NEGATIVE (NEGATIVE); OCCULT BLOOD,URINE NEGATIVE (NEGATIVE); PH,URINE 5.5 (5.0-9.0); PROTEIN,URINE NEGATIVE (NEGATIVE); UROBILINOGEN,URINE 0.2 mg/dL (0.2-1.0)
[2024-02-22 11:28] LABS: HEMOGLOBIN A1C 5.9 % (<5.7)
== END 2024-02-22 11:25 | disposition home or self-care (01) ==
LOC: DL.ED 07:58
DX: K21.9 Gastro-esophageal reflux disease without esophagitis (principal); R93.7 Abnormal findings on diagnostic imaging of other parts of musculoskeletal system; E66.9 Obesity, unspecified; Z68.35 Body mass index [BMI] 35.0-35.9, adult; Z86.16 Personal history of COVID-19; Z79.899 Other long term (current) drug therapy
CPT/HCPCS: 36415; 72128; 74177; 80053; 81003; 83036; 83690; 83735; 85025; 85651; 86140; 96374; 96375; 99284; 99284-25; J1885; J2270; J2405; Q9967

== ENCOUNTER 2024-05-09 05:56 | Emergency (ER) | payer BC ==
[2024-05-09] MEDS ORDERED: Sodium Chloride 0.9% 10 ML Syringe FLUSH PRN (06:08)
[2024-05-09] MEDS ORDERED: Naloxone 2 MG/2 ML Syringe IVPUSH PRN ×2 (06:09→06:35)
[2024-05-09] MEDS ORDERED: Ondansetron 4 MG/2 ML SDV IVPUSH ONE (06:10)
[2024-05-09] MEDS: Metoclopramide 10 MG/2 ML SDV IVPUSH ONE ×2 (06:13→06:44)
[2024-05-09] MEDS: fentaNYL 100 MCG/2 ML SDV IVPUSH ONE (06:14)
[2024-05-09 06:20] LABS: BASOPHILS PERCENT AUTO 0.5 % (0.0-1.0); EOSINOPHILS PERCENT AUTO 3.4 % (1.0-3.0); HEMATOCRIT 45.6 % (40.0-54.0); HEMOGLOBIN 14.8 g/dL (14.0-18.0); LYMPHOCYTES PERCENT AUTO 18.8 % (20.5-50.1); MEAN CORPUSCULAR HEMOGLOBIN 30.5 pg (27.0-34.0); MEAN CORPUSCULAR HGB CONC 32.5 g/dL (33.0-35.0); MEAN CORPUSCULAR VOLUME 93.8 fL (80-100); MONOCYTES PERCENT AUTO 9.8 % (2-8); NEUTROPHILS PERCENT AUTO 67.5 % (42.2-75.2); PLATELET COUNT,PLT 173 10^3/uL (150-450); RED BLOOD CELL COUNT 4.86 10^6/uL (4.6-6.2); WHITE BLOOD CELL COUNT,WBC 5.8 10^3/uL (5.0-10.0)
[2024-05-09 06:24] VITALS: PULSE 86
[2024-05-09] MEDS: HYDROmorphone 0.5 MG/0.5 ML Syringe IVPUSH ONE (06:40)
[2024-05-09 06:41] LABS: LACTIC ACID 1.3 mmol/L (0.4-2.0)
[2024-05-09] MEDS: Iopamidol 612 MG/ML 100 ML Bottle IVPUSH ONE (06:41)
[2024-05-09] MEDS: Sodium Chloride 0.9% 1,000 ML IV ONE (06:44)
[2024-05-09 06:48] LABS: A/G RATIO 1.1; ALANINE AMINOTRANSFERASE,ALT 32 U/L (16-63); ALKALINE PHOSPHATASE 87 U/L (46-116); ANION GAP 12.4 mEq/L (7-13); ASPARTATE AMNIOTRANSFERASE,AST 21 U/L (15-37); BLOOD UREA NITROGEN,BUN 19 mg/dL (7-18); BUN/CREATININE RATIO 16.2 (No establ ref range); CALCIUM 9.9 mg/dL (8.5-10.1); CARBON DIOXIDE,CO2 27 mmol/L (21-32); CHLORIDE,CL 104 mmol/L (98-107); CREATININE 1.17 mg/dL (0.70-1.30); GLUCOSE RANDOM 120 mg/dL (70-99); MAGNESIUM 2.1 mg/dL (1.8-2.4); POTASSIUM,K 4.4 mmol/L (3.5-5.1); PROTEIN TOTAL,TP 7.6 g/dL (6.4-8.2); SODIUM,NA 139 mmol/L (136-145)
[2024-05-09 06:51] LABS: ESTIMATED GFR 70 mL/min (>=60); PROTHROMBIN TIME 10.1 SEC (9.0-12.0); PTT,PARTIAL THROMBOPLSTIN TIME 26.1 SEC (22.0-34.0)
[2024-05-09] MEDS: Lidocaine 2% 20 ML MDV ONE (08:15)
[2024-05-09] MEDS: Ondansetron 4 MG/2 ML SDV IVPUSH ONE (08:33)
[2024-05-09 09:17] VITALS: BP 109/71
== END 2024-05-09 09:04 | disposition home or self-care (01) ==
LOC: DL.ED 05:56
DX: G43.909 Migraine, unspecified, not intractable, without status migrainosus (principal); Z79.899 Other long term (current) drug therapy
CPT/HCPCS: 36415; 70450; 70460; 80053; 83605; 83735; 85025; 85610; 85730; 86140; 93005; 99283; J1171; J2405; J2765; J3010; J7030; Q9967; J3490

== ENCOUNTER 2024-07-09 05:21 | Day surgery (SDC) | payer BC ==
[2024-07-09] MEDS ORDERED: Dextrose 5%-0.45% NaCl 1,000 ML IV SCH (05:30)
[2024-07-09] MEDS: Lactated Ringers 1,000 ML IV SCH (05:39)
[2024-07-09] MEDS ORDERED: Lidocaine 2% 20 ML MDV NERVRT ONE (06:25)
[2024-07-09] MEDS ORDERED: Propofol 200 MG/20 ML SDV IV ONE (06:25)
[2024-07-09 07:33] VITALS: BP 119/70; PULSE 42
== END 2024-07-09 07:54 | disposition home or self-care (01) ==
LOC: DL.ENDO 05:21
PROVIDERS: ATTEND Internal Medicine Gastroenterology
DX: K57.30 Diverticulosis of large intestine without perforation or abscess without bleeding (principal)
CPT/HCPCS: 45378; J7120; 00812